=== PATIENT | male | born 1945 | race Caucasian/White ===

== ENCOUNTER 2018-08-29 21:45 | Inpatient (IN) | payer OTHER, MEDICARE ==
[~2018-08-29] VITALS: Ht 180.3 cm; Wt 116.4 kg
[~2018-08-29 21:45] MED LIST: ALBU90OI INH; AREDS PO; ASPI325 PO; ASPI81CH PO; ATOR10 MT; CITA20 PO; CYAN1000I IM; DOCU100 PO; DULO30 PO; FOLI400 PO; GENTEAL TEARS 015 ML BOTHEYES; GLIP5 MT; LIDOCAINE TOP; LOSA25 MT; LOVA20 PO; METF500 PO; METFORMIN HCL500 MG PO; MIRALAX17 GM PO; MORP30ER PO; MULTIVIT PO; NAPR500 PO; NIAC500 PO; NITR.4SL SL; OMEPRAZOLE MAGN20 MG PO; ONDA4ODT MM; OXYACE5T PO; OXYC10ER PO; OXYC5 PO; Omeprazole20 M1 PO; RANI150 PO; Ranitidine HCl300 MG PO; SENN187 PO; VIT1CAPS12 PO; VITAMIN D-32000 UNIT PO
[2018-08-29 22:05] LABS: Calcium, Ionized (POC) 1.19 mmol/L (1.10-1.46); Chloride (POC) 102 mmol/L (98-108); Creatinine (POC) 1.6 mg/dL (0.8-1.3); Glucose (ISTAT POC) 226 mg/dL (70-99); Hemoglobin (POC) 9.2 g/dL (13.5-17.5); Potassium (POC) 4.9 mmol/L (3.5-5.5); Sodium (POC) 129 mmol/L (135-148); Total CO2 (POC) 17 mmol/L (21-32)
[2018-08-29 22:05] LABS: BASOPHILS ABSOLUTE AUTO 0.02 K/mm3 (0.00-0.23); BASOPHILS PERCENT AUTO 0 % (0-2); EOSINOPHILS PERCENT AUTO 0 % (0-6); Hematocrit 28.5 % (37.0-53.0); Hemoglobin 9.2 g/dL (13.5-17.5); IMMATURE GRAN ABSOLUTE AUTO 0.11 K/mm3 (0.00-0.10); IMMATURE GRAN PERCENT AUTO 1 % (0-1); LYMPHOCYTES ABSOLUTE AUTO 0.33 K/mm3 (0.84-5.20); LYMPHOCYTES PERCENT AUTO 2 % (21-46); MONOCYTES ABSOLUTE AUTO 0.09 K/mm3 (0.16-1.47); MONOCYTES PERCENT AUTO 1 % (4-13); Mean Corpuscular HGB 28.5 pg (26.0-34.0); Mean Corpuscular HGB Conc 32.3 g/dL (31.5-36.5); Mean Corpuscular Volume 88 fL (80-100); Mean Platelet Volume 9.8 fL (9.1-12.4); NEUTROPHILS ABSOLUTE AUTO 15.27 K/mm3 (1.96-9.15); NEUTROPHILS PERCENT AUTO 97 % (41-73); Platelet Count 341 K/mm3 (150-400); RDW Coefficient Variation 14.4 % (11.7-14.2); RDW Standard Deviation 46.2 fL (35.1-46.3); Red Blood Cell Count 3.23 M/mm3 (4.30-5.90); White Blood Cell Count 15.82 K/mm3 (4.00-11.30)
[2018-08-29 22:32] LABS: Albumin, Blood 2.7 g/dL (3.4-5.0); Albumin/Globulin Ratio 0.6 (0.8-1.8); Bilirubin, Total 0.7 mg/dL (0.1-1.0); Bun/Creatinine Ratio 23.9 (12.0-20.0); Calcium, Blood 9.2 mg/dL (8.5-10.1); Creatinine, Blood 1.59 mg/dL (0.60-1.20); Globulin, Blood 4.8 g/dL (2.2-4.0); Potassium, Blood 4.9 mmol/L (3.5-5.5); Total Protein, Blood 7.5 g/dL (6.4-8.2)
[2018-08-29 22:36] LABS: Troponin I 0.935 ng/mL (0.000-0.040)
[2018-08-29 22:38] LABS: International Normalized Ratio 1.06; Prothrombin Time Results 11.2 Sec (9.7-11.5)
[2018-08-29] MEDS ORDERED: ACET500 PO (23:58)
[2018-08-29] MEDS ORDERED: AMLO5 PO (23:59)
[2018-08-29] MEDS ORDERED: ATOR20 PO (23:59)
--- NOTE | 2018-08-30 01:20 | NUR ---
ASSUMING CARE OF PT AT THIS TIME. PT REPORT RECEIVED VIA TELEPHONE WITH OFFGOING ED NURSE, ZITA PRADO. WAITING FOR PT TRANSFER FROM ED TO ICU AT THIS TIME.
--- NOTE | 2018-08-30 01:25 | NUR ---
PT TRANSFERRED FROM ED TO ICU AT THIS TIME.
--- NOTE | 2018-08-30 01:30 | NUR ---
ASSESSMENT PT CALM, QUIET, COOPERATVIE, RESPONDS TO VERBAL STIMULI, SPONT OPENS EYES, TALKS AND ANSWERS QUESTIONS APPROPRIATELY, OCC FORGETFUL, OTHERWISE A&O X4. N/T RUE. PT STATES HX OF N/T IN BUE. OTHERWISE SENSATION INTACT. PT BEAUCHAMP. PT C/O SLIGHT WEAKNESS FROM BASELINE. PT C/O "THROBBING" CP. MORPHINE ADMINSITERED IN ED FOR CP. NITRO DRIP 5 MCG/MIN FOR CP - WILL TITRATE DRIP TO EFFECT. PT STATES "CP IS TOLERABLE RIGHT NOW". LUNGS EXP WHEEZING T/O, DIMINISHED LOWER LOBES. SHALLOW BREATHING. PT ON 2L NC. OXY SAT >95%. RR 20'S. SOB AT REST. DYSPNEA WITH EXERTION. WILL CONTACT HOSPITALIST REGARDING SOB. AFEBRILE. NSR WITH BBB AND OCC PAC'S. HR 80'S. BP STABLE - SEE VS FS. STRONG PULSES. WARM, PALE SKIN. NO EDEMA NOTED. HYPOACTIVE BT X4 QUADRANTS. ABD MOD DIST, SOFT, TENDER WITH AND WITHOUT PALPATION. PT STATES ABD DIST IS NORMAL. PT C/O "CONSTIPATION FOR 4 DAYS". PT STATSE ABD TENDERNESS STARTED WITH CONSTIPATION. UROSTOMY IN PLACE: CLEAR, YELLOW URINE NOTED. PIV X2. HEPARIN DRIP AT 13 UNITS/KG/HR AT A DOSING WEIGHT 90 KG (23.4 ML/HR) - VERIFIED DRIP WITH EVE LAMB. NITRO DRIP 5 MCG/MIN - VERIFIED DRIP WITH ADONIS PRADO.
--- NOTE | 2018-08-30 02:43 | NUR ---
DR. GÓMEZ CALLED DR. GÓMEZ AT THIS TIME. UPDATED DR. GÓMEZ OF SOB AND EXP WHEEZING. DR. GÓMEZ ORDERD BD PROTOCOL. DR. GÓMEZ ALSO ORDERED CBC W/O DIFF FOR AM LABS AND CARDIO CONSULT. EVE ANAYA CALLING CONSULT AT THIS TIME.
--- NOTE | 2018-08-30 03:14 | NUR ---
HEPARIN DRIP NO APTT ORDERED FOR AM LABS. FRANCIS, PHARMACIST PLANNING TO ORDER APTT FOR AM LABS.
[2018-08-30 04:16] LABS: Hematocrit 26.4 % (37.0-53.0); Hemoglobin 8.4 g/dL (13.5-17.5); Mean Corpuscular HGB 28.2 pg (26.0-34.0); Mean Corpuscular HGB Conc 31.8 g/dL (31.5-36.5); Mean Corpuscular Volume 89 fL (80-100); Mean Platelet Volume 9.9 fL (9.1-12.4); Platelet Count 310 K/mm3 (150-400); RDW Coefficient Variation 14.3 % (11.7-14.2); RDW Standard Deviation 46.3 fL (35.1-46.3); Red Blood Cell Count 2.98 M/mm3 (4.30-5.90); White Blood Cell Count 13.75 K/mm3 (4.00-11.30)
--- NOTE | 2018-08-30 04:30 | NUR ---
HEPARIN DRIP INFORMED FRANCIS, PHARMACIST OF AM APTT LAB VALUE. FRANCIS IS PLANNING TO ADJUST HEPARIN DRIP. WAITING FOR ORDER AT THIS TIME.
[2018-08-30 04:36] LABS: Bun/Creatinine Ratio 25.9 (12.0-20.0); Creatinine, Blood 1.58 mg/dL (0.60-1.20); Potassium, Blood 4.7 mmol/L (3.5-5.5)
--- NOTE | 2018-08-30 04:50 | NUR ---
DR. GÓMEZ PT STATES EPIGASTRIC PAIN CONTINUES AFTER ADMINISTERING ROXICODONE PRN. PT DENIES CP AT THIS TIME. NITRO DRIP - CONT TO TITRATE TO EFFECT. DR. GÓMEZ ORDERED MS CONTIN 30 MG BID. PT STATES, "WHEN I TAKE MS CONTIN AT HOME, MY PAIN GOES AWAY". DOCUSATE ADMINSITERED FOR CONSTIPATION. PT REPORTS NO BM FOR [address] GÓMEZ INSTRUCTED TO ADMINISTER MIRALAX AM DOSAGE EARLY. WAITING FOR MIRALAX FROM PHARMACY AT THIS TIME.
--- NOTE | 2018-08-30 06:36 | NUR ---
SHIFT ASSESSMENT NO ACUTE CHANGES NOTED T/O SHIFT. PT SLEPT T/O SHIFT. PT CALM, QUIET, COOPERATIVE, RESPONDS TO VERBAL STIMULI, SPONT OPENS EYES, TALKS AND ANSWERS QUESTIONS APPROPRIATELY, OCC FORGETFUL, OTHERWISE A&O X4. N/T RUE. PT STATES HX OF N/T IN BUE. OTHERWISE SENSATION INTACT. PT BEAUCHAMP. PT C/O SLIGHT WEAKNESS FROM BASELINE. PT HAS DIFFICULTY WITH R HAND FINE ELECTRICAL PROSPECTING OPERATOR. PT STATES R HAND FINE ELECTRICAL PROSPECTING OPERATOR IS NORMAL, BUT C/O SLIGHT WEAKNESS. PT STATES "THROBBING" CP HAS RESOLVED THIS AM. PT ON NITRO DRIP 10 MCG/MIN - CONT TO TITRATE TO EFFECT. PT C/O EPIGASTRIC PAIN THIS AM. PT STATES PAIN IS TOLERABLE THIS AM AFTER ADMINISTERING MS CONTIN. LUNGS COARSE, DIMINIHSED LOWER LOBES. OCC EXPIRATORY WHEEZING NOTED, ESPECIALLY WITH EXERTION. BREATHING TX PER RT. LESS EXPIRATORY WHEEZING NOTED POST BREATHING TX. SHALLOW RBEATHING. PT ON 2L NC. OXY SAT REMAINED >90%. RR 16 TO 20'S. CPAP WHILE SLEEPING WITH PRESSURES 5-10, NO OXYGEN. DYSPNEA WITH EXERTION. AFEBRILE. NSR WITH BBB AND OCC PAC'S. HR 80'S TO 90'S. BP STABLE - SEE VS FS. STRONG PULSES. WARM, PALE SKIN. NO EDEMA NOTED. HYPOACTIVE BT X4 QUADRANTS. ABD MOD DIST, SOFT, TENDER WITH AND WITHOUT PALPATION. PT STATES ABD DIST IS NORMAL. PT C/O "CONSTIPATION FOR 4 DAYS". PRN DOCUSATE ADMINISTERING. PER DR. GÓMEZ - SCHEDULED MIRALAX ADMINSITERED EARLY THIS AM. PT STATES ABD TENDERNESS STARTED WITH CONSTIPATION. UROSTOMY IN PLACE: CLEAR, YELLOW URINE NOTED. PIV X2. HEPARIN DRIP AT 15 UNITS/KG/HR AT A DOSING WEIGHT 90 KG (27 ML/HR). WILL CONT TO MONITOR PT AND WILL PROVIDE BEDSIDE REPORT TO ONCOMING NURSE THIS AM.
--- NOTE | 2018-08-30 10:35 | NUR ---
RECEIVED REPORT AND ASSUMED CARE OF PATIENT. HE IS PLEASANT AND SITTING UP IN BED. PT ABLE TO REPOSITION INDEPENDENTLY IN THE BED. PT IS ON 2 LPM VIA NC O2 SAT >90%. PT A&O, POOR HISTORIAN, HOWEVER, HE IS AWARE OF SITUATION, DATE/TIME, FAMILY AND PLACE. PT COMPLAINS OF PAIN IN ABDOMEN AND SOMEWHAT IN CHEST 5/10 ON PAIN SCALE. WILL CONTINUE TO MONITOR.
--- NOTE | 2018-08-30 11:40 | NUR ---
HEART CENTER RN'S AT BEDSIDE TO PREPARE PATIENT FOR PROCEDURE.
--- NOTE | 2018-08-30 12:03 | NUR ---
ECHOCARDIOGRAM COMPLETED
--- NOTE | 2018-08-30 14:45 | NUR ---
CRYSTAL CALIBRATOR PROCEDURE: PT TAKEN TO CRYSTAL CALIBRATOR BY HEART CENTER STAFF FOR PROCEDURE WITH DR. CALIXTO. PT TOLERATED THE PROCEDURE WELL AND RETURNS TO ROOM ASLEEP. RT. FEMORAL ACCESS SITE IS SOFT AND NON-TENDER, NO HEMATOMA NOTED AT THIS TIME. NO GRIMACE OR WITHDRAWAL FROM ASSESSMENT. WILL CONTINUE TO MONITOR.
--- NOTE | 2018-08-30 15:19 | NUR ---
COMP OF RIGHT LOWER ABD PAIN. MED WITH ROXICODONE WITH GOOD RELIEF.
--- NOTE | 2018-08-30 18:46 | NUR ---
PT CONTINUES TO BE CONFUSED. HE IS SITTING UP IN BED AND FAMILY HAS BEEN AT BEDSIDE OFF AND ON THROUGHOUT THE DAY. PT USING 2 LPM O2 VIA NC, SPO2 >90%. UROSTOMY BAG EXTENSION IN PLACE TO DRAIN TO URINE CATH BAG. PT ANSWERS QUESTIONS APPROPRIATELY, HOWEVER, HE SEEMS FORGETFUL AT THIS TIME. GAVE MEDICATION IN APPLESAUCE, PT SWALLOWED AND TOLERATED WELL. WILL CONTINUE TO MONITOR AND GIVE REPORT TO NOC RN.
--- NOTE | 2018-08-30 19:15 | NUR ---
ASSUMING CARE OF PT AT THIS TIME. PT REPORT RECEIVED AT BEDSIDE WITH OFFGOING NURSES, KIERA RN AND JACK RN. PT LAYING IN BED, SLEEPING UPON ENTERING THE ROOM. VS STABLE - SEE VS FS. PT DOES NOT APPEAR TO BE IN DISTRESS AT THIS TIME. WILL REVIEW PLAN OF CARE.
--- NOTE | 2018-08-30 19:30 | NUR ---
ASSESSMENT PT CALM, QUIET, COOPERATIVE, RESPONDS TO VERBAL STIMULI, SPONT OPENS EYES, FORGETFUL, INCREASED CONFUSION POST STITCH RUBBER, A&O X4, SLOW TO RESPOND TO QUESTIONS, LETHARGIC, FALLS BACK ASLEEP WITH DECREASED STIMULI. N/T RUE. PT STATES HX OF N/T IN BUE. OTHERWISE SENSATION INTACT. PT BEAUCHAMP. PT C/O SLIGHT WEAKNESS FORM BASELINE. PT HAS DIFFICULTY WITH R HAND FINE FLOOR RENOVATOR. PT STATES R HAND FINE FLOOR RENOVATOR IS NORMAL, BUT C/O SLIGHT WEAKNESS. PT STATES PAIN IS TOLERABLE AT THSIS TIME. HELD SCHEDULED MS CONTIN. LUNGS CLEAR, LOWER LOBES DIMINISHED AND RUB IN LOWER LOBES. OCC EXPIRATORY WHEEZ NOTED, ESPEICALLY WITH EXERTION. BREATHING TX PER RT. SHALLOW BREATHING. PT ON 2L NC WHILE AWAKE. CPAP 5-10, NO OXYGEN WHILE SLEEPING. OXY SAT >90% WHILE ON 2L NC. RR 16. DYSPNEA WITH EXERTION. AFEBRILE. NSR WITH BBB AND PAC'S. HR 80'S. BP STBALE - SEE VS FS. STRONG PULSES. WARM, PALE SKIN. NO EDEMA. DENIES CP. R GROIN SITE: NO HEMATOMA, NO BRUISING, NO BLEEDING, NO REDNESS, SLIGHT TENDERNESS WITH PALPATION, DRESSING C/D/I. HYPOACTIVE BT X4 QUADRANTS. ABD MOD DIST, SOFT, TENDER WITH ADN WITHOUT PALPATION. PT STATES ABD DIST IS NORMAL. PT C/O CONSTIPATION. PRN DOCUSATE ADMINISTERED. ADVANCE DIET TOLERATED. UROSTOMY IN PLACE: CLEAR, YELLOW URINE NOTED. PIV X2 - SL. WILL CONT TO MONITOR PT AND WILL PROVIDE BEDSIDE REPORT TO ONCOMING NURSE THIS AM.
--- NOTE | 2018-08-31 02:31 | NUR ---
DR. RICO GÓMEZ ORDERED CBC W/O DIFF. DR. GÓMEZ DOES NOT WANT AM CHEMISTRY LABS.
[2018-08-31 03:21] LABS: Hematocrit 26.9 % (37.0-53.0); Hemoglobin 8.2 g/dL (13.5-17.5); Mean Corpuscular HGB 27.8 pg (26.0-34.0); Mean Corpuscular HGB Conc 30.5 g/dL (31.5-36.5); Mean Corpuscular Volume 91 fL (80-100); Mean Platelet Volume 10.7 fL (9.1-12.4); Platelet Count 235 K/mm3 (150-400); RDW Coefficient Variation 14.9 % (11.7-14.2); RDW Standard Deviation 49.8 fL (35.1-46.3); Red Blood Cell Count 2.95 M/mm3 (4.30-5.90); White Blood Cell Count 8.96 K/mm3 (4.00-11.30)
--- NOTE | 2018-08-31 07:30 | NUR ---
ASSUMED CARE OF PATIENT; SEE ASSESSMENT CHARTING FOR DETAILS. PATIENT AWAKE; SHORT-TERM MEMORY LIMITED; LIKES TO JOKE AND IS VERY PLEASANT. APPEARS TO HAVE SOME HALLUCINATIONS; TALKING TO HIS SON "MICHELA" WHO IS NOT PRESENT; THINKS MCIHELA IS AGE 8 (GROWN MAN NOW). AM CARE GIVEN AND CBG CHECKED; NO COVERAGE INDICATED. MEAL SETUP DONE BY RN AND ASSESSED PATIENTS' SWALLOW, ETC. BEFORE ALLOWING HIM TO FEED SELF; NO DIFFICULTY NOTED. PATIENT HAD BEEN NPO T/O NIGHT WITHOUT IVF'S AND VERY THIRSTY; ADA DIET ORDERED BY DR. ABEL WHO IS PRESENT AT THIS TIME. R UROSTOMY IN PLACE AND DRAINING SMALL AMOUNT OF SAAD URINE; DRAINING FROM UROSTOMY BAG AND INTO F/C DRAINAGE BAG. ABD. OBESE WITH ACTIVE BOWEL TONES. CHEST WITH COARSE ANTERIOR SOUNDS; ENCOURAGED TO TAKE DEEP BREATHS; C/O SORENESS TO FRONTAL CHEST WITH COUGHING BUT LUNGS CLEARED. OXYGEN AT 2L/MIN VIA NC/ BIOX.97%. PATIENT THINKING IT IS 1991 AND WHEN RN INFORMED HIM IT WASN'T HE SAID "THEN 1995". MONITOR NSR AND VSS; AFEBRILE. R GROIN SITE D/I; NO S/SX'S OF HEMATOMA.
--- NOTE | 2018-08-31 07:58 | NUR ---
SHIFT ASSESSMENT PT SLEPT T/O SHIFT. PT CALM, QUIET, COOPERATIVE, RESPONDS TO VERBAL STIMULI, SPONT OPENS EYES, FORGETFUL, INCREASED CONFUSION NOTED T/O SHIFT, SLOW TO RESPOND TO QUESTIONS, LETHARGIC, FALLS BACK ASLEEP WITH DECREASED STIMULI, AUDITORY AND VISUAL HALLUNICATIONS NOTED THIS AM. PT'S STATED, "ESTEPHANIA ACTED LIKE THIS AFTER HIS PREVIOUS SURGERY FOR HIS AK. MAYBE HE IS REACTING TO THE MEDICATIONS". N/T RUE. PT STATES HX OF N/T IN RUE. OTHERWISE SENSATION INTACT. PT BEAUCHAMP. PT C/O SLIHT WEAKNESS FROM BASELINE. PT HAS DIFFICULTY WITH R HAND FINE DRIP. PT STATES R HAND FINE SALES TECHNICIAN IS NORMAL, BUT C/O SLIGHT WEAKNESS. PT STATED PAIN WAS TOLERABLE T/O SHIFT. LUNGS CLEAR, LOWER LOBES DIMINISHED AND RUB. OCC EXPIRATORY WHEEZING NOTED, ESPECIALLY WITH EXERTION. BREATHING TX PER RT. SHALLOW BREAHTING. PT ON RA TO 2L NC WHILE AWAKE. CPAP 7-10 WITH 2L OXYGEN. CONT TO TITRATE OXYGEN TO MAINTAIN SPO2. RR 16 TO 30'S. DYSPNEA WITH EXERTION. AFEBRILE. NSR WITH BBB AND PAC'S. HR 60'S TO 80'S. BP STABLE - SEE VS FS. STRONG PULSES. WARM, PALE SKIN. NO EDEMA. DENIED CP. R GROINT SITE: NO HEMATOMA, NO BRUISING, NO BLEEDING, NO REDNESS, SLIGTH TENDERNESS WITH PALPATION, DRESSING C/D/I. HYPOACTIVE BT X4 QUADRANTS. ABD MOD DIST, SOFT, TENDFER WITH AND WITHOUT PALPATION. PT STATES ABD DIST IS NORMAL. PT C/O CONSTIPATION. PRN DOCUSATE ADMINSITERED DURING SHIFT. PT TOLERATED PO APPLESAUCE WITH MEDICATIONS, BUT REFUSED ADDITIONAL FOOD AND WATER T/O SHIFT. UROSTOMY IN PLACE: CLEAR, YELLOW URINE NOTED. PIV X1 - SL. DR. ABEL IN TO SEE PT THIS AM. UPDATED DR. ABEL REGARDING PT'S STATUS. DR. ABEL PLANNING TO CHANGE TO PCU STATUS AND REMOVE PT'S MEDICATOINS. ONCOMING SHIFT PROVIDED TO EVE VALDES THIS AM.
--- NOTE | 2018-08-31 08:30 | NUR ---
DR. CALIXTO HERE; ORDERED STAT BMP.
--- NOTE | 2018-08-31 09:15 | NUR ---
TC TO DR. NUNES WITH LABS AND INFORMED RENAL FUNCTION WORSE. INFORMED HIM PATIENT NPO T/O NIGHT WITHOUT IVF'S; REQUEST IV INFUSION AND WONDERED IF MUCOMYST COULD BE ADDED D/T DYE FROM ANGIOGRAM YESTERDAY. PHYSICIAN STARTE TO REQUEST IVF AND THEN CALLED FOR RENAL CONSULT.
--- NOTE | 2018-08-31 09:20 | NUR ---
T/C TO HOSPITALIST, DR. ABEL RE: CARDIOLOGY WANTING RENAL CONSULT. ORDER GIVEN FOR NS TO INFUSE AT 100ML/HR X 2 LITERS AND TO GIVE MUCOMYST 600MG PO BID X 2 DAYS (TOTAL OF 4 DOSES). TO HOLD OFF ON RENAL CONSULT.
--- NOTE | 2018-08-31 09:30 | NUR ---
PHYSICAL THERAPY HERE; SEE NOTES. CONCERNED THAT PATIENT HAS 'L SIDE NEGLECT AND IMPAIRED SENSATION TO L SIDE WELL SOME SPEECH ISSUES'. RN T/C TO DR. ABEL RE: CONCERNS; ORDER FOR S.T. AND O.TJack MCCOLLUM.S
[2018-08-31 10:03] LABS: Bun/Creatinine Ratio 22.7 (12.0-20.0); Calcium, Blood 8.9 mg/dL (8.5-10.1); Creatinine, Blood 2.2 mg/dL (0.60-1.20)
--- NOTE | 2018-08-31 11:30 | NUR ---
SPEECH TX. HERE TO EVAL. PATIENT; STATES PATIENT IS SUFFERING FROM A CVA. T/C TO DR. ABEL; ORDER FOR STAT CT OF HEAD (WITHOUT CONTRAST).
--- NOTE | 2018-08-31 12:15 | NUR ---
TO CT SCAN VIA BED WITH MONITOR AND RN AND TELEPHONE TRIAGE NURSE. RETURNED AFTER 15/MIN WITHOUT INCIDENT.
--- NOTE | 2018-08-31 13:30 | NUR ---
DR. ABEL RETURNED AND STATES CT SHOWS LARGE CVA; REQUESTS NEURO CONSULT. RN T/C TO DR. CENTENO OFFICE AND INFORMED RE: CONSULT WITH ICU 8; THEY WILL PASS CONSULT INFORM. ONTO PHYSICIAN.
--- NOTE | 2018-08-31 15:15 | NUR ---
DR. CENTENO HERE TO EVAL. PATIENT; SPOKE WITH FAMILY AND SHOWED THEM THE CT SCAN; SEE CONSULT NOTES.
--- NOTE | 2018-08-31 18:00 | NUR ---
SUMMARY: SLEEPING ON/OFF THROUGHOUT THE DAY; CPAP WORN THIS AFTERNOON; NO OXYGEN REQUIRED; BIOX STAYING 94% OR >. FAMILY VERY LOVING AND ATTENTIVE; ASSISTED PATIENT WITH MEALS; NO NOTED SWALLOWING ISSUES AND NO S/SXS OF ASPIRATION; APPETITE VERY LIMITED AND PATIENT HAS HARD TIME STAYING FOCUSED ON ACTIVITIES. SPEECH APPEARS CLEARER THIS EVENING. ONLY 375 U.O THIS PAST 12 HOURS. PATIENT DRINKING FLUIDS WELL AND IVF OF NS INFUSING AT 100ML/HR. WILL REPORT TO ONCOMING RN.
--- NOTE | 2018-08-31 19:20 | NUR ---
ASSUMED CARE PT RESTING WITH CPAP ON WITH 2L BLEED-IN. PT OPENS EYES TO VOICE, FOLLOWS COMMANDS, ALERT TO YEAR, FAMILY AND SELF BUT [facility] [place]. LEFT TIRE AND LUBE TECHNICIAN WEAKER COMPARED TO RIGHT AND PT HAS TWITCHING TYPE MOVEMENT WHEN ATTEMPTING TO GET HAND TO FACE. PT TOLERATING WATER AND ABLE TO CLEAR SECRETIONS WITH COUGH. NS AT 100ML/HR WITH ADDITIONAL LITER PLANNED. BP STABLE, EKG SHOWS SR W/ BBB, O2 SATS 91%. RLQ UROSTOMY IN PLACE DRAINING TO BAG.
--- NOTE | 2018-09-01 07:20 | NUR ---
START OF SHIFT NOTE: PATIENT IS AWAKE, ON HOME CPAP, PLACED ON 2 L NC, PATIENT FOLLOWS COMMANDS, ORIENTED TO SELF/FAMILY/YEAR, PATIENT THIN[facility], ABLE TO OPEN EYES, WIGGLE TOES ON RIGH LOWER EXTREMITY, AND SQUEEZE WITH RIGHT HAND, NEGLECT ON LEFT UPPER AND LOWER EXTREMITIES, PATIENT ABLE TO MOVE LEFT LEG BUT HAS NO SPATIAL PERCEPTION, ALSO ABLE TO RAISE LEFT ARM BUT NOT ABLE TO SQUEEZE HAND, PATIENT HAS NO PROBLEM SWALLOWING AND TOOK HIS AM COREG WITH APPLESAUCE WITHOUT ANY PROBLEMS, DR. ABEL IN TO SEE PATIENT, PATIENT HAS UROSTOMY ON RIGHT SIDE HOOKED UP TO JACKSON BAG, CALL LIGHT IN REACH, WILL CONTINUE TO MONITOR.
[2018-09-01 08:48] LABS: Bun/Creatinine Ratio 21.5 (12.0-20.0); Calcium, Blood 8.1 mg/dL (8.5-10.1); Creatinine, Blood 2.46 mg/dL (0.60-1.20); Potassium, Blood 4.8 mmol/L (3.5-5.5)
--- NOTE | 2018-09-01 10:45 | NUR ---
PATIENT TAKEN OFF BEDPAN AND PARTIAL BED BATH DONE WITH DAGOBERTO SCHUMACHER, DAUGHTER AND AT BEDSIDE, UPDATE PROVIDED, PATIENT WAS ABLE TO FOLLOW COMMANDS AND HELP WITH ROLLING FROM SIDE TO SIDE.
--- NOTE | 2018-09-01 11:39 | NUR ---
CALLED DR. ABEL AND RELAYED THAT OF PATIENT WOULD LIKE TO SPEAK WITH HIM ABOUT NEUROLOGY SEEING THE PATIENT, AND IF THE PATIENT IS ABLE TO GO HOME AFTER THE HOSPITAL STAY, DR. ABEL WILL TRY TO COME TO ROOM LATER TODAY AND SPEAK WITH FAMILY.
--- NOTE | 2018-09-01 11:40 | NUR ---
PT IN TO SEE PATIENT AND WORK WITH HIM.
--- NOTE | 2018-09-01 11:44 | NUR ---
PATIENT PLACED ON BEDPAN, CALL LIGHT IN REACH, FAMILY AT BEDSIDE, WILL CONTINUE TO MONITOR.
--- NOTE | 2018-09-01 13:37 | NUR ---
OT IN TO SEE PATIENT.
--- NOTE | 2018-09-01 15:28 | NUR ---
REPORT WAS CALLED TO EVE HEWITT, PATIENT WILL BE MOVED TO ROOM 311, MEDICAL STATUS WITH TELEMETRY, PATIENT TO BE MOVED WITH BED, ALL BELONGINGS WITH PATIENT.
--- NOTE | 2018-09-01 16:20 | NUR ---
PATIENT WAS MOVED TO MEDICAL FLOOR ROOM 311 AT 1615 VIA BED AND WITH ALL BELONGINGS.
--- NOTE | 2018-09-01 16:32 | NUR ---
PATIENT TRANSFERRED TO ROOM 311, REPORT RECEIVED FROM EVE ROOT FROM ICU. PATIENT IS ORIENTED TO SELF AND FAMILY. CONTINUES TO HAVE HALLUCINATIONS. L SIDED WEAKNESS HAS NEARLY RESOLVED. LUNGS DIMINISHED THROUGHOUT, ON 3LO2 TO MAINTAIN SATS WITH CPAP AT NOC. PATIENT REPORTING PAIN IN LOWER ABDOMEN, WILL MEDICATE PER EMAR. UROSTOMY TO RLQ INTACT AND DRAINING TO JACKSON BAG. FAMILY AT BEDSIDE. ORIENTED TO ROOM AND USE OF CALL LIGHT. FALL PRECAUTIONS IN PLACE PER UNIT PROTOCOL.
--- NOTE | 2018-09-01 22:59 | NUR ---
DURING MY INITIAL ASSESSMENT AT START OF SHIFT PT IS SLEEPING VERY HEAVILY. VERY DIFFICULT TO WAKE UP BUT DID RESPOND EVENTUALLY. THIS RN DID NOT FEEL PT WOULD BE ABLE TO SAFELY SWALLOW HIS MEDICATIONS DUE TO SLEEPINESS. PT'S REPORTED THAT PT HAD A "ROUGH AND TIRING DAY TODAY AND HASN'T GOTTEN MUCH SLEEP THE LAST NIGHT OR TWO". PT REQUESTED TO HOLD NIGHT MEDS FOR NOW AND LET PT GET SOME REST. PT IS SLEEPING COMFORTABLY IN NO APPARENT DISTRESS. CPAP IS ON AND O2 SATS IN MID 90'S. WILL CONTINUE TO MONITOR.
[2018-09-02 05:06] LABS: Mean Platelet Volume 10.3 fL (9.1-12.4); Platelet Count 226 K/mm3 (150-400)
--- NOTE | 2018-09-02 05:13 | NUR ---
RECORDS TECH SUMMARY PT WAS VERY SLEEPY AT START OF SHIFT. PT STATED PT HAD A BUSY AND ROUGH DAY AND WAS PRETTY TIRED. HELD PT'S PO MEDS AT THAT TIME. PT WOKE UP LATER ON AND WAS ABLE TO TAKE HIS 2100 MEDS JUST FINE WITH APPLESAUCE. PT PLEASANT AND ANSWERS MOST QUESTIONS APPROPRIATELY BUT IS STILL QUITE CONFUSED WITH SOME HALLUCINATIONS. FORGETS HE'S AT THE HOSPITAL AND THOUGHT THIS RN WAS HIS SON JUAN ANTONIO. PT HAS BEEN ON HIS CPAP MOST OF THE NIGHT SATTING IN THE MID 90'S. DUE TO CONFUSION PT DOES TAKE OFF THE CPAP AT TIMES AND DESATS FAIRLY QUICKLY INTO THE MID TO HIGH 80'S. PT ANXIOUS AT TIMES AND WAS WANTING TO GET OUT OF BED. PT REPORTED BACK AND ABD PAIN AT THIS TIME AND WAS ABLE TO RELAX WITH PAIN MEDICATIONS. DRY ROOM OPERATOR REPORTS PT IS SINUS ABDIRAHMAN IN THE 50'S WHILE SLEEPING AND BUMPS UP TO 60-70'S WHILE AWAKE WITH A BBB AND OCCASIONAL PVC'S. O2 SATS MID 90'S ON CPAP AND OTHER VITAL SIGNS STABLE. WILL CONTINUE TO MONITOR.
[2018-09-02 05:27] LABS: Bun/Creatinine Ratio 21.9 (12.0-20.0); Calcium, Blood 8.4 mg/dL (8.5-10.1); Creatinine, Blood 2.7 mg/dL (0.60-1.20); Potassium, Blood 5.2 mmol/L (3.5-5.5)
--- NOTE | 2018-09-02 15:22 | NUR ---
Met with Mr. Scott's and youngest son at bedside. They told me story after story of pt's strength and survival throughout his life. 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 He has survived severl bout of cancer, and has always declined chemo until this most recent cancer dx. According to his , "The cancer has always gone away before." Family unsure if chemo is palliative or curative. They admit he is critically ill, but son states "He's been this bad before." Son left and , Hanh, became much more open once we were alone. We spoke a little about his code status and his wishes. Hanh states they never talked about these things, but she beleives he would not want to live with a dimished lifestyle. She states that if it were up to him, he would probably be a DNR. But he would worry about leaving his family and would "want everything done." Hanh is very soft-spoken and clearly emotionally overwhelmed with fear and worry. It is clear to me that the pt is in charge of this family. Hanh began to ask me about prognosis and what I thought about his chances of survival with and without chemo. At this point, I introduced our Palliative Care nurses to the conversation. I gently explained their extensive knowledge regarding pain/sysmptom management and their ability to clarify sometimes confusing medical terminology. She appeared relieved to have this support available. T/C to palliative care team. Hanh responded well to being heard and affirmed. She held my hand and allowed me to hold her while she cried. She was deeply appreciative of prayer and emotional support. This family will certainly benefit from a gentle, careful explaination of Brad's multiple comorbidities in understandable terms. Brad slept soundly through this conversation. I will remain available.
--- NOTE | 2018-09-02 15:57 | NUR ---
Spiritual care visit conducted. Patient and family are known to this aligner typewriter. Patient was asleep and family asked to talk to me. Patient's Carrie and daughter Trista shared with me the patient's recent medical history and told me about their confusion about next steps in regard to the care of the patient. I listened empathically, affirmed the idea about having the Paliative Care Nurse talk with their Oncologist to help them understand what treatment should look like going forward and reminded them that they don't need to make any decision immediately (they have time to gather all the necessary information). I also ministered to the emotional/spiritual issues because the family is exhausted emotionally and spiritually drained. I encouraged self care, provided pastoral travel counselor automobile club, quoted inspirational verses from the Bible and provided prayer. The family responded well to all interventions and showed signs of restored shania. They expressed gratitude for my care and time.
--- NOTE | 2018-09-02 16:00 | NUR ---
Pt gave permission to [facility] to provide care 09/03/18.
--- NOTE | 2018-09-02 19:14 | NUR ---
Initial Visit: Consult received for advanced care planning. Pt admitted for NSTEMI: history of CAD, HTN, diabetes, obstructive sleep apnea, metastatic urethral cancer. Pt is reclining in bed. He is alert, oriented to self and family. He does not answer any other orientation questions at this time, it is not apparent if he does not know the answers or just chosing not to answer. Pt reports that he is having lower back pain, is unable to tell me how severe it is and assign a number between 0-10. He does request medication. Family is bedside - there is a daughter, Tatiana, and , Hanh. Both are concerned about the patient's prognosis. They are unsure if he will continue to tolerate treatment: This was his first chemo therapy 2 days ago and he reports profound fatigue afterward with NSTEMI treatment now. He has also suffered an ischemic stroke with left sided neglect. Family is asking questions about the pt's future treatments. They report that Dr. Goncalves has not been clear on if the patient's treatment is palliative or curative. They have repeated "months" [that the patient has left to live] and are unsure if this is with the chemo treatments or without them. They ask this Palliative nurse to call Sacha and ask more direct questions, as they would like more information so that they can plan. Tatiana states that the speech therapist has warned them sternly against giving him anything to eat or drink. I cannot find documentation supporting a change in diet today. He is ADA diet without texture or consistency changes. This was reviewed with the nurse who called Dr. Cisneros. Pt is now changed to puree foods with honey consistency fluids. Dr. Cisneros also added IV fluids. Plan to follow up with Dr. Goncalves tomorrow. I did talk to his office and the nurse was able to tell me that he has bladder cancer with metastatic disease to liver and lungs. Will return call and hope to get more detailed prognosis. If unable, will advocate for Dr. Goncalves to consult on the patient while in the hospital. The family seems to be in need of a more direct conversation of prognosis. Family states that they value frankness. Will follow up tomorrow with call to Sacha, then follow up with patient and family.
--- NOTE | 2018-09-02 20:16 | NUR ---
SUMMARY- PT ALERT TO SELF AND FAMILY, FOLLOWS COMMANDS WITH A LOT OF CUES, SEEMS TO HAVE A PROCESSING DELAY/DISORDER. SWALLOWS PILLS WITH APPLESAUCE, COUGHED WITH THIN LIQ ON TWO OCCASIONS, COUGHING. PT MADE PUREE/THICK UNTIL FURTHER SWALLOW EVAL- CALLED DR ABEL 183 TO INFORM HIM PTS COUGHING AND AGREED TO DIET RESTRICTIONS UNTIL SWALLOW EVAL REEVAL. NOTIFIED HIM OF BRADYCARDIA AND DOESN'T WANT RN TO HOLD COREG UNLESS <45. GAVE COREG WITH HR 54. CONT PULSE OX, PT DESATS WITH ACTIVITY OR PO INTAKE. HAS MIN RESERVE. FIRST THING IN AM 0715, RN ASSESSED PT TO BE TACHYPNIC AND DYSPNIC, SAT 94$, DIMINISHED T.O. CALLED RN FOR NEB TX WHICH WAS HELPFUL.. MEDICATED PT FOR PAIN. PLACED ON CPAP FROM APPROX [id number] WHICH HELPED REGAIN RESP FUNCTION. BUT STILL HAS MIN RESERVE AND TIRES WITH MIN EXERTION. IV DISLODGED 1800- UNABLE TO START NEW IV. ORDER FOR NS AT 50 WITH LITTLE TO NO ORAL INTAKE. GAVE SESEKOT, MIRILAX IN THE AM AND FLEETS ENEMA 1800, PT HAD LG AMOUNTS OF GAS AND BM SMEAR, BT REMAIN ACTIVE. DR ABEL ORDERED ADDITIONAL ENULOSE TO BE GIVEN HS. NIGHTS CALLING TO HAVE IV PLACED. AT BEDSIDE MOST OF THE DAY, INSISTING SHE WANTS PT TO BE FULL CODE THAT HE ALWAYS PULLS OUT OF IT. FAMILY HAD ALOT OF SUPPORT FROM PALLIATIVE/PASTORAL CARE TODAY. MOST OF PT/OT HELD OFF BECAUSE PT HAD NO RESERVE. PAIN IN ABD CONTROLLED WITH MS CONTIN AND OXYCODONE 10MG TWICE TODAY. REPORT TO ELLY CHATMAN RN.
--- NOTE | 2018-09-03 04:31 | NUR ---
SHIFT SUMMARY THE PATIENT PRESENTED THIS SHIFT WITH VITALS WNL, A&O TO SELF,AND FAMILY, AND WITH LUNGS SOUNDS THAT WERE COARSE, BUT DIM AT THE BASES. THE PATIENT WAS ON 5 LITERS OF O2 AND HAD STATS OF HIGH 80'S TO LOW 90'S. AFTER THE PATIENT WAS PLACED ON BI-PAP HIS O2 STATS HAVE BEEN IN THE MID TO HIGH 90'S. THE PATIENT HAS SLEPT OFF AND ON DURNING THE SHIFT,AND IS PLEASANT, BUT CONFUSED TO VISIT WITH. THE PATIENT IS RESTING AT THIS TIME, WILL CONTINUE TO MONITOR.
[2018-09-03 05:17] LABS: BASOPHILS ABSOLUTE AUTO 0.01 K/mm3 (0.00-0.23); BASOPHILS PERCENT AUTO 0 % (0-2); EOSINOPHILS ABSOLUTE AUTO 0.05 K/mm3 (0.00-0.68); EOSINOPHILS PERCENT AUTO 1 % (0-6); Hematocrit 22.4 % (37.0-53.0); Hemoglobin 6.7 g/dL (13.5-17.5); IMMATURE GRAN ABSOLUTE AUTO 0.07 K/mm3 (0.00-0.10); IMMATURE GRAN PERCENT AUTO 1 % (0-1); LYMPHOCYTES ABSOLUTE AUTO 0.55 K/mm3 (0.84-5.20); LYMPHOCYTES PERCENT AUTO 8 % (21-46); MONOCYTES ABSOLUTE AUTO 0.34 K/mm3 (0.16-1.47); MONOCYTES PERCENT AUTO 5 % (4-13); Mean Corpuscular HGB 27.2 pg (26.0-34.0); Mean Corpuscular HGB Conc 29.9 g/dL (31.5-36.5); Mean Corpuscular Volume 91 fL (80-100); Mean Platelet Volume 10.5 fL (9.1-12.4); NEUTROPHILS ABSOLUTE AUTO 5.65 K/mm3 (1.96-9.15); NEUTROPHILS PERCENT AUTO 85 % (41-73); NRBC ABSOLUTE 0.03 K/mm3 (0.00-0.02); NRBC Auto 0.4 /100 WBC (0.0-0.2); Platelet Count 214 K/mm3 (150-400); RDW Coefficient Variation 15.1 % (11.7-14.2); Red Blood Cell Count 2.46 M/mm3 (4.30-5.90); White Blood Cell Count 6.67 K/mm3 (4.00-11.30)
[2018-09-03 05:49] LABS: Magnesium, Blood 2.9 mg/dL (1.6-2.4)
[2018-09-03 06:11] LABS: Calcium, Blood 8.6 mg/dL (8.5-10.1); Creatinine, Blood 2.79 mg/dL (0.60-1.20); Potassium, Blood 4.5 mmol/L (3.5-5.5)
[2018-09-03 12:49] LABS: IMMATURE RETIC FRACTION 11.4 % (2.3-16.0); RETIC HGB EQUIVALENT 32.7 pg (28.20-36.60); RETICULOCYTE COUNT PERCENT 0.35 % (0.50-2.50)
[2018-09-03 12:59] LABS: Percent Saturation 11.4 % (20.0-50.0)
[2018-09-03 15:53] LABS: Uric Acid, Blood 8.8 mg/dL (3.5-7.2)
--- NOTE | 2018-09-03 16:40 | NUR ---
Patient was sitting up in bed and alert when I entered patient's room. Patient and daughter Trista welcomed me. Patient struggling to communicate but has a gracious disposition. Patient in markedly improved from my visit the prior day. I facilitated some story telling with the patient, reinforced patient's humor and drive. I provided pastoral classification counselor, companionship and prayer. Patient responded well to all interventions and even prayed for me at the end of my prayer and recalled my full name (which I did not give). Patient showed signs of restored shania and expressed gratitude for the visit.
--- NOTE | 2018-09-04 04:39 | NUR ---
SHIFT SUMMARY THE PATIENT PRESENTED THIS SHIFT A&O TO SELF, VITALS WNL AND WITH INSPIRATIONAL WHEEZES HIGH IN LUNG SOUNDS, BUT OTHERWISE CLEAR BUT DIM AT BASES. THE PATIENT WAS RECEIVING A TRANSFUSION AT THE START OF THE SHIFT, WHICH WAS COMPLETED FOR TWO UNITS. THE PATIENT'S C-PAP WAS PUT INTO USE AT 2130 AND THE PATIENT SLEPT SEVERAL HOURS. THE PATIENT IS RESTING AT THIS TIME, WILL CONTINUE TO MONITOR.
[2018-09-04 05:10] LABS: BASOPHILS ABSOLUTE AUTO 0.02 K/mm3 (0.00-0.23); BASOPHILS PERCENT AUTO 0 % (0-2); EOSINOPHILS ABSOLUTE AUTO 0.07 K/mm3 (0.00-0.68); EOSINOPHILS PERCENT AUTO 1 % (0-6); Hemoglobin 9.2 g/dL (13.5-17.5); IMMATURE GRAN ABSOLUTE AUTO 0.29 K/mm3 (0.00-0.10); IMMATURE GRAN PERCENT AUTO 4 % (0-1); LYMPHOCYTES ABSOLUTE AUTO 0.63 K/mm3 (0.84-5.20); LYMPHOCYTES PERCENT AUTO 9 % (21-46); MONOCYTES ABSOLUTE AUTO 0.63 K/mm3 (0.16-1.47); MONOCYTES PERCENT AUTO 9 % (4-13); Mean Corpuscular HGB 28.6 pg (26.0-34.0); Mean Corpuscular HGB Conc 31.7 g/dL (31.5-36.5); Mean Corpuscular Volume 90 fL (80-100); Mean Platelet Volume 10.1 fL (9.1-12.4); NEUTROPHILS ABSOLUTE AUTO 5.34 K/mm3 (1.96-9.15); NEUTROPHILS PERCENT AUTO 77 % (41-73); NRBC ABSOLUTE 0.06 K/mm3 (0.00-0.02); NRBC Auto 0.9 /100 WBC (0.0-0.2); Platelet Count 240 K/mm3 (150-400); RDW Coefficient Variation 14.9 % (11.7-14.2); RDW Standard Deviation 48.9 fL (35.1-46.3); Red Blood Cell Count 3.22 M/mm3 (4.30-5.90); White Blood Cell Count 6.98 K/mm3 (4.00-11.30)
[2018-09-04 05:29] LABS: Calcium, Blood 8.7 mg/dL (8.5-10.1); Creatinine, Blood 2.46 mg/dL (0.60-1.20); Potassium, Blood 4.5 mmol/L (3.5-5.5)
--- NOTE | 2018-09-04 18:41 | NUR ---
PATIENT HAS BEEN UP IN CHAIR THIS SHIFT. WAS A TWO ASSIST . FAMILY CONTINUES TO BE AT BEDSIDE AND NOT SURE OF PROGRESSION OF PATIENTS CONDITION. HE HAD SMALL BM AFTER LACTOLOSE WAS GIVEN.
--- NOTE | 2018-09-04 18:51 | NUR ---
Lengthy discussion with the family today. They are all trying to make sense of his prognosis and trying to develop the best plan for him. Reviewed palliative vs curative treatment for his cancer. Reviewed recent events and current illness. Reviewed code status and POLST form. They have extensive questions about this and want to go through every eventuality for the pt's future care and every posibility of complication that could happen. This was an exhaustive effort by palliative care to establish and reinforce a plan with the family. There are language barriers for the - she does not speak Greek as a first language. There are two sons present and also a daughter. They are asking good questions, but they are redundant and need extra time to understand what is happening. Frequent education and reinforcing from nurses will be needed for all aspects of his care. Family will need updates often. Family seems to agree that patient would not want to be a full code. However, there are differing views about what interventions he would be accepting of, as far as life saving measures. POLST form reviewed several times, I did not feel comfortable filling the POLST form out, as family may want to change it as soon as tomorrow if they receive other new information. Booklet, Hard Choices for [place] [employer] given, along with What you Need to Know About Life Sustaining Measures. They also have copy of the POLST they are reviewing. Plans were made to discuss this again with them on Friday with this Palliative Nurse. Will plan on following up with patient and family on Friday. Let them know that if they needed anything that a Palliative nurse will be here over the weekend. They have the palliative office phone number.
[2018-09-05 00:45] LABS: Bilirubin, Urine Neg (Neg); Blood, Urine 2+ (Neg); Glucose Qualitative, Urine Neg (Neg); Ketones, Urine Neg (Neg); Leukocyte Esterase, Urine 1+ (Neg); Nitrite, Urine Neg (Neg); Protein, Urine 2+ (Neg); Specific Gravity, Urine 1.005 (1.003-1.022); Urobilinogen, Urine NORM (Normal)
[2018-09-05 01:43] LABS: Appearance, Urine Clear (Clear); Color, Urine Yellow (P-Yellow)
[2018-09-05 01:44] LABS: Amorphous Light (0-Heavy); Bacteria Few /hpf; Mucus Light (0-Heavy); Red Blood Cells, Urine 0-2 /hpf (0-2); Squamous Epithelial Cells Rare /hpf (Few)
--- NOTE | 2018-09-05 04:31 | NUR ---
SHIFT SUMMARY THE PATIENT PRESENTED THIS SHIFT ASLEEP, BUT WAKE UP AROUND 2000 HOURS. THE PATIENT'S VITALS WNL, A&O TO SELF AND WITH LUNGS THAT WERE CLEAR BUT DIM IN THE BASES. THE PATIENT TOOK HIS PILLS WITH THICKENED WATER, AND REQUESTED DINNER. THE PATIENT ATE ABOUT HALF OF HIS DINNER MEAL. THE PATIENT'S SPOUSE CALLED AND TALKED TO THE PATIENT. THE PATIENT HAS SLEPT MOST OF THE SHIFT WITH HIS C-PAP ON. THE OATIENT IS RESTING AT THIS TIME, WILL CONTINUE TO MONITOR
[2018-09-05 04:46] LABS: BASOPHILS ABSOLUTE AUTO 0.03 K/mm3 (0.00-0.23); BASOPHILS PERCENT AUTO 0 % (0-2); EOSINOPHILS ABSOLUTE AUTO 0.11 K/mm3 (0.00-0.68); EOSINOPHILS PERCENT AUTO 2 % (0-6); Hematocrit 28.9 % (37.0-53.0); Hemoglobin 9.3 g/dL (13.5-17.5); IMMATURE GRAN ABSOLUTE AUTO 0.41 K/mm3 (0.00-0.10); IMMATURE GRAN PERCENT AUTO 6 % (0-1); LYMPHOCYTES ABSOLUTE AUTO 0.88 K/mm3 (0.84-5.20); LYMPHOCYTES PERCENT AUTO 13 % (21-46); MONOCYTES ABSOLUTE AUTO 0.85 K/mm3 (0.16-1.47); MONOCYTES PERCENT AUTO 12 % (4-13); Mean Corpuscular HGB 28.4 pg (26.0-34.0); Mean Corpuscular HGB Conc 32.2 g/dL (31.5-36.5); Mean Corpuscular Volume 88 fL (80-100); Mean Platelet Volume 10.3 fL (9.1-12.4); NEUTROPHILS ABSOLUTE AUTO 4.65 K/mm3 (1.96-9.15); NEUTROPHILS PERCENT AUTO 67 % (41-73); NRBC ABSOLUTE 0.09 K/mm3 (0.00-0.02); NRBC Auto 1.3 /100 WBC (0.0-0.2); Platelet Count 255 K/mm3 (150-400); RDW Coefficient Variation 15.3 % (11.7-14.2); RDW Standard Deviation 49.2 fL (35.1-46.3); Red Blood Cell Count 3.28 M/mm3 (4.30-5.90); White Blood Cell Count 6.93 K/mm3 (4.00-11.30)
[2018-09-05 05:05] LABS: Bun/Creatinine Ratio 24.3 (12.0-20.0); Calcium, Blood 8.6 mg/dL (8.5-10.1); Creatinine, Blood 1.89 mg/dL (0.60-1.20); Potassium, Blood 4.4 mmol/L (3.5-5.5)
[2018-09-05 05:33] LABS: BASOPHILS ABSOLUTE MAN 0.06 K/mm3 (0.00-0.23); BASOPHILS PERCENT MAN 1 % (0-2); EOSINOPHILS ABSOLUTE MAN 0.06 K/mm3 (0.00-0.68); EOSINOPHILS PERCENT MAN 1 % (0-6); LYMPHOCYTES ABSOLUTE MAN 0.55 K/mm3 (0.84-5.20); LYMPHOCYTES PERCENT MAN 8 % (21-46); METAMYELOCYTE ABSOLUTE MAN 0.13 K/mm3 (0.00-0.00); METAMYELOCYTE PERCENT MAN 2 % (0-0); MONOCYTES ABSOLUTE MAN 0.69 K/mm3 (0.16-1.47); MONOCYTES PERCENT MAN 10 % (4-13); MYELOCYTE ABSOLUTE MAN 0.13 K/mm3 (0.00-0.00); MYELOCYTE PERCENT MAN 2 % (0-0); NEUTROPHILS ABSOLUTE MAN 5.26 K/mm3 (1.96-9.15); SEG NEUTROPHILS PERCENT MAN 76 % (41-73); TOTAL CELLS COUNTED 100
[2018-09-05 07:12] LABS: COMPLEMENT C3, SERUM 174 mg/dL (82-167); COMPLEMENT C4, SERUM 32 mg/dL (14-44)
[2018-09-05 08:48] LABS: Stool Occult Blood Guaiac 1 Neg (Neg)
--- NOTE | 2018-09-05 18:11 | NUR ---
SHIFT SUMMARY PT AXO TO SELF AND FAMILY THOUGH WAS SEEING THINGS THAT WERE NOT PRESENT. PT REORIENTED PRN. PT AND SPOUSE REFUSED AFTERNOON VITALS AND CGB UNTIL PT AWOKE, STILL WAITING FOR PT TO WAKE AT THIS TIME. SPOUSE PRESENT AT THIS TIME. VSS THOUGH PT BRADYCARDIC IS HIS BASELINE. PT UP TO CHAIR FOR LUNCH. PT WORKED WITH PHYSICAL THERAPY, SEE NOTE. ILIOSTOMY APPLIANCE CHANGED THIS SHIFT BY HIS , WNL. DRAINING AND PATENT. IV SALINE LOCKED AND PATENT. BED IN LOW POSITION, CALL LIGHT WITHIN REACH, BED ALARM ON.
--- NOTE | 2018-09-06 05:04 | NUR ---
SUMMARY: A/O TO SELF/FAMILY BUT FORGETFUL TO TIME, PLACE AND EVENT. BED ALARM ON FOR SAFETY. 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 ASP PREC'S IN PLACE AND PT HAD MEDS CRUSHED IN APPLESAUCE BUT THOSE THAT COULDN'T BE WERE TOLERATED W/SIPS OF WATER AND W/O DIFFICULTY. PO INTAKE OF ENSURE AND WATER WAS ENCOURAGED. SCHEDULED MIRALAX, COLACE AND LACTULOSE WERE RECIEVED BUT STILL NO BM THIS SHIFT. SPO2 WNL ON 3L O2 BLEED IN VIA CPAP AT HS AND ON RA WHILE AWAKE. TURN SCHEDULE WAS MAINTAINED AND ILEOSTOMY PATENT/DRAINING. SCHEDULED MS CONTIN WAS EFFECTIVE AT CONTROLLING CHRONIC PAIN. NO ACUTE CHANGES, VSS/AFEBRILE. WILL MONITOR AND REPORT TO DAY RN.
[2018-09-06 05:18] LABS: Hematocrit 32.2 % (37.0-53.0); Hemoglobin 10.1 g/dL (13.5-17.5)
[2018-09-06 05:45] LABS: Bun/Creatinine Ratio 23.4 (12.0-20.0); Creatinine, Blood 1.58 mg/dL (0.60-1.20)
--- NOTE | 2018-09-06 18:22 | NUR ---
SHIFT SUMMARY PT AXO TO SELF AND FAMILY, PLEASANT AND COOPERATIVE WITH CARE THOUGH CONFUSED AT TIMES. FORGETS LIMITATIONS. VSS THOUGH BP ELEVATED, MEDICATED PER EMAR. PT HAD VERY LARGE BM THIS SHIFT UNFORMED AND BROWN. PT UP TO CHAIR FOR MEALS. TOLERATED WELL. PT ALSO HAD A SHOWER THIS SHIFT. ILIOSTOMY DRAINING AND PATENT. IV PATENT AND SALINE LOCKED. BED IN LOW POSITION, CALL LIGHT WITHIN REACH. NO ACUTE CHANGES THIS SHIFT.
--- NOTE | 2018-09-07 04:26 | NUR ---
SUMMARY: A/O TO SELF AND FAMILY BUT CONT'S TO HAVE VISUAL DISTURBANCES AND WEAKNESS POST OLD CVA. STATED STRENGTH AND BALANCE IMPROVED FROM PREVIOUS UPON T/F FROM CHAIR TO BED. HE TOLERATED PILLS CRUSHED IN APPLESAUCE BUT ALSO TOOK MS CONTIN WHOLE IN WATER W/O DIFFICULTY. ASP PREC'S AND TURN SCHEDULE MAINTAINED. ILEOSTOMY IS PATENT/DRAINING. NO BM'S THIS SHIFT AND REFUSED ALL BOWEL MEDS D/T PT HAVING AN XL BM TODAY WHICH SHE FELT WAS SUFFICIENT. PO INTAKE ENCOURAGED. HE WORE CPAP W/3L O2 BLEED W/RESPS E/U AND SPO2 WNL. PT DENIED NEEDING ANY PRN MEDS THIS SHIFT. NO ACUTE CHANGES, VSS AND AFEBRILE. PT AWAITING SNFF W/LIKELY D/C THIS WEEK. WILL MONITOR AND REPORT TO DAY RN.
[2018-09-07 05:29] LABS: Hematocrit 32.7 % (37.0-53.0); Hemoglobin 9.5 g/dL (13.5-17.5); Mean Corpuscular HGB 27.9 pg (26.0-34.0); Mean Corpuscular HGB Conc 29.1 g/dL (31.5-36.5); Mean Platelet Volume 10.1 fL (9.1-12.4); NRBC ABSOLUTE 0.06 K/mm3 (0.00-0.02); NRBC Auto 0.6 /100 WBC (0.0-0.2); Platelet Count 249 K/mm3 (150-400); RDW Coefficient Variation 15.3 % (11.7-14.2); RDW Standard Deviation 53.2 fL (35.1-46.3); White Blood Cell Count 9.79 K/mm3 (4.00-11.30)
[2018-09-07 05:51] LABS: Mean Corpuscular Volume 96 fL (80-100)
[2018-09-07 05:53] LABS: Anion Gap 12 mmol/L (6-16); Blood Urea Nitrogen 27 mg/dL (8-24); Bun/Creatinine Ratio 21.6 (12.0-20.0); CO2, Blood 15 mmol/L (21-32); Calcium, Blood 8.6 mg/dL (8.5-10.1); Chloride, Blood 111 mmol/L (98-108); Creatinine, Blood 1.25 mg/dL (0.60-1.20); Glomerular Filtration Rate 60 (60-); Glucose, Blood 121 mg/dL (70-99); Phosphorus, Blood 3.1 mg/dL (2.5-4.9); Potassium, Blood 3.9 mmol/L (3.5-5.5); Sodium, Blood 138 mmol/L (136-145)
[2018-09-07 06:21] LABS: BAND PERCENT MAN 2 % (0-8); BASOPHILS PERCENT MAN 0 % (0-2); EOSINOPHILS ABSOLUTE MAN 0.48 K/mm3 (0.00-0.68); EOSINOPHILS PERCENT MAN 5 % (0-6); LYMPHOCYTES ABSOLUTE MAN 1.76 K/mm3 (0.84-5.20); LYMPHOCYTES PERCENT MAN 18 % (21-46); METAMYELOCYTE ABSOLUTE MAN 0.29 K/mm3 (0.00-0.00); METAMYELOCYTE PERCENT MAN 3 % (0-0); MONOCYTES ABSOLUTE MAN 0.88 K/mm3 (0.16-1.47); MONOCYTES PERCENT MAN 9 % (4-13); MYELOCYTE ABSOLUTE MAN 0.09 K/mm3 (0.00-0.00); MYELOCYTE PERCENT MAN 1 % (0-0); NEUTROPHILS ABSOLUTE MAN 6.26 K/mm3 (1.96-9.15); SEG NEUTROPHILS PERCENT MAN 62 % (41-73); TOTAL CELLS COUNTED 100
--- NOTE | 2018-09-07 13:58 | NUR ---
Spiritual care visit conducted. Patient was lying in bed and alert when I entered the room. Patient is known to me. Patient shared with me about his pain level and so I called the nurse. Patient and nurse discussed pain management options. Patient shared with me about his interpretation of the events that led to his current health condition. Daughter, Tatiana was bedside and patiently rehersed the corrected version of those events and did so at least 4 or 5 times during my visit. Patient also shared about his shania, his family and his concerns about recovery from his current health crisis. I listened empathically, provided companionship and prayer. Patient showed signs of reduced stress.
--- NOTE | 2018-09-07 18:16 | NUR ---
SHIFT SUMMARY PT HAS BEEN C/O BACK PAIN A LOT THIS SHIFT. PT SAT UP IN CHAIR FOR BREAKFAST AND WAS UNABLE TO TOLERATE SITTING FOR VERY LONG. THIS RN HAS MEDICATED FOR BACK PAIN X2 WITH PRN AND ONCE WITH SCHEDULED PAIN MEDICATION. PT SLEPT A LOT OF THE AFTERNOON. NOT MUCH OF AN APPETITE. PLANS FOR POSSIBLE DISCHARGE TO SNF TOMORROW IF BED AVAILABLE. NO ACUTE CHANGES. CALL LIGHT IN REACH. WILL CONTINUE TO MONITOR AND REPORT TO ONCOMING RN. BED ALARM ON FOR SAFETY.
--- NOTE | 2018-09-08 05:18 | NUR ---
Rn summary: Patient is alert and oriented x2. He is very pleasant and cooperatiive. Pt has vision deficits and can not see peripherally. Pt has a urostomy and has had yellow urine. Pt blood sugar was 154 and he did have 3 units of novalog. Patient has slept with C-Pap/3 L O2 most of the night. He does have some underlying confusion and forgetfulness. He has not tried to get out of bed on his own. Waiting for bed placement to SNF. wishes to notified as soon as it is known when he is going. She wants to be here and bring his clothes. Call light in reach with freq monitoring.
--- NOTE | 2018-09-08 11:48 | NUR ---
Spiritual care visit conducted. Patient's family was waiting for me when I entered the room. Patient's , Carrie, and daughter, Trista, had questions about care for patient after leaving the hospital, about how to emotioanlly steady the patient as he struggles with his new limitations and about my experience with chemotherapy. I listened empathically, gave suggestions about ways to emotionally/spiritually support the patient, discussed ways the family can work toward the best plan of care, I told about my personal chemotherapy experience and I provided prayer. Patient and family expressed gratitude for for my time and care.
--- NOTE | 2018-09-08 16:51 | NUR ---
SHIFT SUMMARY PATIENT SLIGHTLY ALTERED MENTAL STATUS. SPEAKS THOUGH HE IS NOT ALWAYS AWARE OF CURRENT ILLNESS. PATIENT THINKS HE CAN GO HOME AND BE ABLE TO CARE FOR HIMSELF. HE CAN PIVOT WITH 2 PERSON ASSIST, FWW AND GAITBELT. LEFT LEG AND ARM WEAK AND IMPAIRED MOVMENT. DIFFICULT WITH HAND EYE COORDINATION. UNABLE TO SEE ANYTHING IN LEFT PERIPHERAL LINE OF SIGHT. HE CAN SEE RIGHT PERIPHERAL LINE OF SIGHT. ASPIRATION PRECAUTIONS. THIN LIQUID OK BUT NO STRAW. HE CAN FEED HIMSELF WITH SOME ASSISTANCE. IF HE HOLDS FOOD ITEM IN LEFT HAND HE CAN USE SPOON IN RIGHT HAND TO PUT FOOD IN MOUTH. JUNO AT BEDSIDE HE REFERS TO HER STEFANIE. CPAP AT NIGHT 3L O2. ROOM AIR DURING THE DAY. CONT. PULSE OX IN PLACE.
--- NOTE | 2018-09-08 16:58 | NUR ---
PAIN MANAGMENT I DISCUSSED PAIN CONTROL WITH DR. JULIO MANLEY BECAUSE PATIENT WAS IN SEVERE PAIN AFTER TAKING DOSE OF OXYCODONE 4 HOURS PREVIOUSLY. STATED HE TAKES PAIN MEDS MORE FREQUENTLY WHILE AT HOME. MED LIST WAS RECIEVED FROM [facility] UPON REQUEST. LONG ACTING MS CONTIN IS TAKEN AT HIGHER DOSE AT HOME BUT OXY IS TAKEN AT LOWER DOSE AT HOME. DR. MANLEY STATED SHE DOES NOT WANT TO INCREASE DOSE OF LONG ACTING OPIODS AT THIS TIME D/T POOR KIDNEY FUNCTION AND CURRENT AMS. WE WILL TRY TO SPACE OUT SHORT ACTING SO HE CAN HAVE 5 MG Q3 HOURS INSTEAD OF 10 MG Q6 AND SEE IF THAT HELPS MANAGE PAIN BETTER. I WILL PASS ON TO NIGHT NURSE TO UTILIZE TYLENOL WELL FOR BETTER PAIN MANAGMENT.
[2018-09-08] MEDS ORDERED: Omeprazole20 M1 PO (17:22)
--- NOTE | 2018-09-09 04:25 | NUR ---
SHIFT SUMMARY PATIENT HAD NO ACUTE CHANGES OBSERVED DURING THE SHIFT. AXO TO SELF, FAMILY, AND DIRECTIONS. TWO PERSON STAND PIVOT TO BSC W/FWW AND GAIT BELT. TAKES MEDS CRUSHED IN PUDDING. PATIENT ABLE TO SEE RIGHT PERIPHERAL LINE OF SIGHT. CBG 211. CPAP WITH 3L O2 W/CONTINUOUS PULSE OXIMETRY. WEARS IT ON/OFF T/O NIGHT. STATING 95% O2. SCHEDULE MS CONTIN 15 MG FOR CHRONIC BACK PAIN. UROSTOMY T JACKSON BAG PATENT. VSS/AFEBRILE. DENIES SOB AND N/V. CALL LIGHT IN REACH. WILL CONTINUE TO MONITOR UNTIL DAY SHIFT NURSE ASSUMES CARE.
--- NOTE | 2018-09-09 11:47 | NUR ---
HE IS VISITING NOW IN THE ROOM AND HIS CALLED TO SAY SHE WOULD BE IN SOON. HE HAD A SHOWER ON THE SHOWER CHAIR THIS MORNING AFTER SITTING UP IN THE CHAIR FOR BREAKFAST. HE DID NOT LIKE STAYING UP THAT LONG BUT WAS GLAD IN THE LONG RUN. NO CHANGES.
--- NOTE | 2018-09-09 14:40 | NUR ---
Spiritual care visit conducted. Patient and family seem more at ease today. Patient seemed to be more cognitively aware and able to focus. The family has a better grasp of the direction they are headed for the care of the patient after discharge. There was more laughter and less tension. I listened empathically, provided companionship and prayer. I will remain available to patient and family.
--- NOTE | 2018-09-09 14:45 | NUR ---
RECEIVED OXYCODONE FOR BREAKTHROUGH PAIN. HIS AND DAUGHTER HAVE GONE HOME FOR A WHILE. HE IS ASLEEP.
--- NOTE | 2018-09-09 17:10 | NUR ---
HE IS ASLEEP. HIS PLANS TO BE BACK AT DINNER TIME TO HELP HIM EAT. NO PROBLEMS WITH THE UROSTOMY BAG. HE TOOK ONE DOSE OF OXYCODONE THIS AFTERNOON. HE WAS ASKING FOR THE MORPHINE. I EXPLAINED THAT IT IS SCHEDULED BID. HE IS PLEASANTLY CONFUSED. HE HAS BEEN ON RA ALL AFTERNOON.
--- NOTE | 2018-09-10 04:59 | NUR ---
SHIFT SUMMARY: PT IS ALERT AND ORIENTED WITH MINOR CONFUSION. PT IS CALM, FRIENDLY AND COOPERATIVE WITH CARE. PT DID NOT USE HIS CALL LIGHT OVERNIGHT. PT'S FAMILY IN VISITING AT THE START OF SHIFT. PT TOLERATED CPAP OVERNIGHT. UROSTOMY INTACT AND DRAINING YELLOW URINE. PT REPORTS MINOR PAIN, GAVE SCHEDULED OXYCODONE. PT DENEIS NAUSEA, VOMITING, AND SOB. NO ACUTE CHANGES OR COMPLICATIONS THIS SHIFT. BED IN LOW POSITION, CALL LIGHT WITHIN REACH. WILL REPORT TO DAY NURSE.
--- NOTE | 2018-09-10 19:26 | NUR ---
HE AMBULATED IN THE ROOM THIS AM AND AGAIN THIS EVENING. IN BETWEEN, HE WAS UP IN THE RECLINER ALL DAY. HE ATE POORLY TODAY. NO C/O PAIN. NO DISTRESS. HE REMAINS PLEASANTLY CONFUSED. HE IS BLIND. HIS AND DAUGHTER VISITED X2 TODAY. VSS. NO CHANGES. POSSIBLE DISCHARGE TOMORROW.
--- NOTE | 2018-09-11 04:08 | NUR ---
PT ALERT AND ORIENTED X3; SPENT NIGHT IN ROOM; PT STILL STRUGGLES TO STAND AND AMBULATE VIA WALKER X 2 STANDBY ASSIST WITH GAIT BELT AND WALKER UTILIZED. PT IT TENTATIVELY PLANNING TO BE DISCHARGED TODAY TO [facility] FOR RE[facility]AB[facility]ATION. PT DENIES PAIN/NAUSEA.
--- NOTE | 2018-09-11 04:22 | NUR ---
I AGREE WITH SHAWNA WARREN.
--- NOTE | 2018-09-11 04:24 | NUR ---
PT RESTING COMFORTABLY IN BED WHILE WEARING CPAP THIS EVENING. DENIES PAIN OR NAUSEA. PT ABLE FOLLOW VERY SIMPLE VERBAL COMMANDS AND REQUIRES OCCASIONAL CUES WITH IADLS. PTS ILEOSTOMY DRAINING CLEAR YELLOW FLUID WITH SEDIMENT. NO RESPIRATORY DISTRESS NOTED.
[2018-09-11] MEDS ORDERED: CARV6.25 PO (14:18)
[2018-09-11] MEDS ORDERED: DOCU100 PO (14:19)
[2018-09-11] MEDS ORDERED: CLOP75 PO (14:20)
[2018-09-11] MEDS ORDERED: Humalog Mi100 UNIT/4 (14:22)
[2018-09-11] MEDS ORDERED: SENN187 PO (14:22)
--- NOTE | 2018-09-11 14:52 | NUR ---
DISCHARGE NOTE PATIENT DISCHARGED. BEING TRANSFERED TO FACILITY IN [place] FOR REHAB. A&O TO SELF, FAMILY, AND FOLLOWING DIRECTIONS. FORGETFUL AND REQUIRES REORIENTATION AT TIMES. MEDS CRUSHED IN APPLESAUCE. ORIGINALLY REFUSED MEDICATIONS THIS AM AND THEN WHEN MORE AWAKE WAS ABLE TO TAKE THEM. IV D/C, WNL. BEING DISCAHRGED WITH FAMILY WHO ARE GOING TO TAKE HIM TO [place]. ESCORTED OUT BY CHARGE NURSE ERNIE VIA WHEELCHAIR. FAMILY AT HIS SIDE, ALL BELONGINGS IN HAND. REPORT CALLED TO [facility].
--- NOTE | 2018-09-11 19:50 | NUR ---
Called by family to complete polst process after discussion with micheal on pt needs. POLST completed original sent with family copies sent for SNF and faxed to registry and and medical redords. completed careful discussion of care goals level of care. pt and family want DNR, they want limited treatment. they do not want life sustaining treatements such as intubation or cialysis. they woud possibly accept some ICU time if pt needed some medications that required monitoring. and daughter demonstarted understanding or document and plan of care. teir goal is quality care and will adjust level as he changes.
== END 2018-09-11 14:33 | DRG 250 ==
LOC: ER 21:45 → ICUW 08-30 01:20 → MEDS 08-30 01:20 → ICUE 08-30 01:20 → MEDS 09-01 16:29 → ENPENDDIS 09-11 12:54 → MEDS 09-11 14:33
PROVIDERS: Emergency Medicine; Family Medicine; Hospitalist; Internal Medicine; Internal Medicine Interventional Cardiology; ADMIT Hospitalist
PROC: 02703ZZ Dilation of Coronary Artery, One Artery, Percutaneous Approach (ICD-10-PCS; principal; 2018-08-30)
PROC: B2161ZZ Fluoroscopy of Right and Left Heart using Low Osmolar Contrast (ICD-10-PCS; 2018-08-30)
DX: T82.855A Stenosis of coronary artery stent, initial encounter (principal); I21.4 Non-ST elevation (NSTEMI) myocardial infarction; J18.9 Pneumonia, unspecified organism; E87.1 Hypo-osmolality and hyponatremia; R44.3 Hallucinations, unspecified; E87.2 Acidosis; N17.9 Acute kidney failure, unspecified; C78.00 Secondary malignant neoplasm of unspecified lung; C78.7 Secondary malignant neoplasm of liver and intrahepatic bile duct; C67.9 Malignant neoplasm of bladder, unspecified; Z79.82 Long term (current) use of aspirin; I25.2 Old myocardial infarction; Z87.891 Personal history of nicotine dependence; N18.3 Chronic kidney disease, stage 3 (moderate); E11.22 Type 2 diabetes mellitus with diabetic chronic kidney disease; F32.9 Major depressive disorder, single episode, unspecified; I25.10 Atherosclerotic heart disease of native coronary artery without angina pectoris; G25.81 Restless legs syndrome; Z79.84 Long term (current) use of oral hypoglycemic drugs; Z79.891 Long term (current) use of opiate analgesic; I44.7 Left bundle-branch block, unspecified; E66.9 Obesity, unspecified; Z68.33 Body mass index [BMI] 33.0-33.9, adult; E78.00 Pure hypercholesterolemia, unspecified; E78.5 Hyperlipidemia, unspecified; Z98.61 Coronary angioplasty status; I66.21 Occlusion and stenosis of right posterior cerebral artery; H53.462 Homonymous bilateral field defects, left side; I12.9 Hypertensive chronic kidney disease with stage 1 through stage 4 chronic kidney disease, or unspecified chronic kidney disease
CPT/HCPCS: 36415; 70450; 71045; 71260; 76770; 80047; 80048; 80053; 80069; 81001; 82272; 82550; 82607; 82728; 82746; 82947; 83010; 83540; 83550; 83605; 83735; 84145; 84484; 84550; 85014; 85018; 85025; 85027; 85045; 85049; 85347; 85610; 85730; 86160; 86850; 86900; 86901; 86923; 87040; 92507; 92523; 92526; 92610; 92920; 93005; 93010; 93306; 93454; 93571; 94640; 94660; 94762; 96365-59; 96366-59; 96368; 96375-59; 96376-59; 97110; 97112; 97116; 97163; 97166; 97530; 97535; 99152; 99153; 99285-25; C1725; C1760; C1769; C1887; C1894; J0461; J0692; J0696; J1644; J1650; J2250; J2270; J2405; J3010; J3370; J3420; J7030; J7050; J7120; P9016; Q9967

== ENCOUNTER 2018-10-11 20:31 | Inpatient (IN) | payer MEDICARE ==
[~2018-10-11] VITALS: Ht 180.3 cm; Wt 106.6 kg
[~2018-10-11 20:31] MED LIST changes: +ACET500 PO; +AMLO5 PO; +ATOR20 PO; +CARV6.25 PO; +CLOP75 PO; +Humalog Mi100 UNIT/4; +Isosorbide Mono30 MG PO; +LISI5 PO
[2018-10-11 21:11] LABS: BASOPHILS ABSOLUTE AUTO 0.03 K/mm3 (0.00-0.23); BASOPHILS PERCENT AUTO 0 % (0-2); EOSINOPHILS ABSOLUTE AUTO 0.55 K/mm3 (0.00-0.68); EOSINOPHILS PERCENT AUTO 5 % (0-6); Hematocrit 30.6 % (37.0-53.0); Hemoglobin 9.5 g/dL (13.5-17.5); IMMATURE GRAN ABSOLUTE AUTO 0.04 K/mm3 (0.00-0.10); IMMATURE GRAN PERCENT AUTO 0 % (0-1); LYMPHOCYTES ABSOLUTE AUTO 1.52 K/mm3 (0.84-5.20); LYMPHOCYTES PERCENT AUTO 15 % (21-46); MONOCYTES ABSOLUTE AUTO 0.93 K/mm3 (0.16-1.47); MONOCYTES PERCENT AUTO 9 % (4-13); Mean Corpuscular HGB 28.2 pg (26.0-34.0); Mean Corpuscular Volume 91 fL (80-100); Mean Platelet Volume 10.3 fL (9.1-12.4); NEUTROPHILS ABSOLUTE AUTO 7.21 K/mm3 (1.96-9.15); NEUTROPHILS PERCENT AUTO 70 % (41-73); Platelet Count 315 K/mm3 (150-400); RDW Coefficient Variation 15.6 % (11.7-14.2); RDW Standard Deviation 51.8 fL (35.1-46.3); Red Blood Cell Count 3.37 M/mm3 (4.30-5.90); White Blood Cell Count 10.28 K/mm3 (4.00-11.30)
[2018-10-11 21:28] LABS: Alanine Aminotransfer (ALT/SGP 17 U/L (12-78); Albumin, Blood 3.3 g/dL (3.4-5.0); Albumin/Globulin Ratio 0.6 (0.8-1.8); Alk Phos 85 U/L (50-136); Anion Gap 11 mmol/L (6-16); Aspartate Aminotrans (AST/SGOT 13 U/L (12-37); Bilirubin, Total 0.5 mg/dL (0.1-1.0); Blood Urea Nitrogen 53 mg/dL (8-24); Bun/Creatinine Ratio 17.8 (12.0-20.0); CO2, Blood 17 mmol/L (21-32); Calcium, Blood 9.2 mg/dL (8.5-10.1); Chloride, Blood 103 mmol/L (98-108); Creatinine, Blood 2.97 mg/dL (0.60-1.20); Globulin, Blood 5.2 g/dL (2.2-4.0); Glomerular Filtration Rate 22 (60-); Glucose, Blood 117 mg/dL (70-99); Potassium, Blood 5.8 mmol/L (3.5-5.5); Sodium, Blood 131 mmol/L (136-145); Total Protein, Blood 8.5 g/dL (6.4-8.2); Troponin I <0.015 ng/mL (0.000-0.040)
[2018-10-12 05:34] LABS: Bun/Creatinine Ratio 18.1 (12.0-20.0); Calcium, Blood 9.1 mg/dL (8.5-10.1); Creatinine, Blood 2.71 mg/dL (0.60-1.20); Potassium, Blood 5.2 mmol/L (3.5-5.5)
--- NOTE | 2018-10-12 08:09 | NUR ---
PATIENT DID NOT WANT ANY BREAKFAST THIS SHIFT. WHEN I BROUGHT TRAY IN AND WOKE PATIENT UP HE STATED TO ME I DONT WANT ANY BREAKFST AND WENT BACK TO SLEEP. I OFFERED TO HELP PATIENT AND HE DECLINED. TRAY WAS REMOVED FROM AND WILL CHECK BACK WITH APTIENT LATER,
--- NOTE | 2018-10-12 14:32 | NUR ---
Case conferenced with Dr and RN. Per Dr request I attempted to visit patient when present to review POLST and answer questions re: advanced care planning, hospice, palliative care and POLST options. had gone home for the afternoon. Plan made with RN for her to page me if returns today or in am when she is in to visit. Pt is conversant and trying to use his phone when I arrive to the room. I assisted him in calling his son's phone number per his request. He left a message on the son's phone. Pt introduced himself to me and without prompting told me he was sent to the hospital by [facility] and that he had been admitted to [facility] yesterday. He denies distress or pain but appears slightly anxious with attempts to use the phone. I am not observing any nonverbal painful behaviors or indicators. Time spent in conversation with pt but he did not identify any needs at this time, other than getting ahold of his son by phone. Palliative Care will try again to connect with pt and family when they are present.
--- NOTE | 2018-10-12 15:08 | NUR ---
IVF'S CONTINUE. HE HAS NO COMPLAINTS EXCEPT HIS CHRONIC PAIN IN ABD AND SOMETIMES IN HIS LEFT CHEST WALL. HE IS PLEASANTLY CONFUSED. HE WAS NOT ORTHOSTATIC WHEN CHECKED. HIS BP AND PULSE BOTH WENT UP WHEN HE STOOD. HE DID FEEL DIZZY WITH STANDING THOUGH. SENNA GIVEN IN ADDITION TO HIS SCHEDULED BOWEL CARE MEDS HE RECEIVED THIS MORNING. HIS WANTED TO MAKE SURE WE GIVE HIM MUCH BOWEL CARE NECESSARY. SHE SAYS TODAY IS DAY 3 OF NO BM. SHE ALSO WANTS HIM TO GET HIS OXYCODONE AROUND THE CLOCK. HIS PAIN HAS BEEN MILD ALL DAY. PT IS WITH HIM NOW.
--- NOTE | 2018-10-12 16:23 | NUR ---
Spiritual care visit conducted. Patient was lying in bed and alert when I entered the patient's room. Patient openly shared about his current medical situation, his current living arrangements and his family unit complications. Patient would be focused and coherant one moment and then say something that did not make sense at all the next moment. Patient seemed to have a great attitude about this and was able to laugh at himself. I listened to patient and provided companionship and prayer. Patient responded well and and showed signs of an elevated mood.
--- NOTE | 2018-10-12 18:34 | NUR ---
HE HAS HAD AN UNEVENTFUL DAY. NO COMPLAINTS EXCEPT FOR SPORADICALLY SAYING HE WANTS MORPHINE. HIS HAS NOT RETURNED TONIGHT YET. HE HAD A YOUNG COUPLE VISIT FOR AN HOUR MID-AFTERNOON. IVF'S CONTINUE AT 75/HR. EVENING DOSE OF COREG GIVEN, THOUGH AM DOSE WAS HELD BECAUSE OF BRADYCARDIA.
--- NOTE | 2018-10-13 04:48 | NUR ---
PLAN CONSULTANT SUMMARY NO ACUTE CHANGES THIS SHIFT. PT ALERT AND ORIENTED TO SELF AND FAMILY BUT IS PLEASANT AND FOLLOWS DIRECTION. THINKS HE IS IN MEDICAL WING OF SHIP MOST OF THE TIME. TREATED FOR PAIN WITH SCHEDULED MS CONTIN. PT HAS RESTED COMFORTABLY THROUGH MOST OF THE SHIFT. PT PROBABLY DC HOME LATER TODAY PENDING MORNING LAB WORK. VSS, WILL CONTINUE TO MONITOR.
[2018-10-13 04:49] LABS: BASOPHILS ABSOLUTE AUTO 0.04 K/mm3 (0.00-0.23); BASOPHILS PERCENT AUTO 1 % (0-2); EOSINOPHILS ABSOLUTE AUTO 0.51 K/mm3 (0.00-0.68); EOSINOPHILS PERCENT AUTO 8 % (0-6); Hematocrit 28.8 % (37.0-53.0); Hemoglobin 8.6 g/dL (13.5-17.5); IMMATURE GRAN ABSOLUTE AUTO 0.03 K/mm3 (0.00-0.10); IMMATURE GRAN PERCENT AUTO 1 % (0-1); LYMPHOCYTES ABSOLUTE AUTO 0.96 K/mm3 (0.84-5.20); LYMPHOCYTES PERCENT AUTO 15 % (21-46); MONOCYTES ABSOLUTE AUTO 0.69 K/mm3 (0.16-1.47); MONOCYTES PERCENT AUTO 11 % (4-13); Mean Corpuscular HGB Conc 29.9 g/dL (31.5-36.5); Mean Platelet Volume 10.1 fL (9.1-12.4); NEUTROPHILS ABSOLUTE AUTO 4.21 K/mm3 (1.96-9.15); NEUTROPHILS PERCENT AUTO 65 % (41-73); Platelet Count 249 K/mm3 (150-400); RDW Coefficient Variation 15.5 % (11.7-14.2); RDW Standard Deviation 53.7 fL (35.1-46.3); Red Blood Cell Count 3.07 M/mm3 (4.30-5.90); White Blood Cell Count 6.44 K/mm3 (4.00-11.30)
[2018-10-13 04:50] LABS: Mean Corpuscular Volume 94 fL (80-100)
[2018-10-13 05:08] LABS: Albumin, Blood 2.8 g/dL (3.4-5.0); Anion Gap 9 mmol/L (6-16); Blood Urea Nitrogen 38 mg/dL (8-24); Bun/Creatinine Ratio 16.2 (12.0-20.0); CO2, Blood 18 mmol/L (21-32); Calcium, Blood 8.6 mg/dL (8.5-10.1); Chloride, Blood 109 mmol/L (98-108); Creatinine, Blood 2.34 mg/dL (0.60-1.20); Glomerular Filtration Rate 29 (60-); Glucose, Blood 84 mg/dL (70-99); Phosphorus, Blood 3.6 mg/dL (2.5-4.9); Potassium, Blood 4.6 mmol/L (3.5-5.5); Sodium, Blood 136 mmol/L (136-145)
--- NOTE | 2018-10-13 11:17 | NUR ---
Spiritual care visit conducted. Patient is confused, stating that [place] is on a [place] ship and that we have to follow the orders of the captain. 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 Patient said that he was having pain in his chest and was grimcing with his face. I went out to tell his nurse about the pain, and when I returned about asked him if he was having any pain he stated that he was not. I listened empathically, provided companionship and prayer. Patient responded well and even said a brief and beautiful prayer for me. Patient thanked me for the visit.
--- NOTE | 2018-10-13 15:40 | NUR ---
HE HAS BEEN SEEN BY OUR UPHOLSTERY INSTRUCTOR AND A CAREGIVER FROM AN OUTSIDE AGENCY CAME HERE TO INTERVIEW THE PATIENT AND HIS REGARDING HELP AT HOME. THE APPT WAS PREVIOUSLY SET FOR TODAY IN HIS HOME BUT HE ENDED UP HERE.
--- NOTE | 2018-10-13 17:43 | NUR ---
Pal Care RN visit: Pt was just getting ready to work with PT in his room. I visited with after a agency had been in to assess pt and speak with this afternoon. Pt continues to be alert, conversant and mostly oriented but he also continues to make statements that don't make any sense mixed in with seemingly normal conversation. We left room so PT could work with Tu. Pt's , Hanh and I reviewed a recently completed POLST that she completed for her in August with another Pal Care RN. It is consistent with their wishes and pt's DNR orders/arm band. , Hanh, reports that at this time they wish to continue to seek treatment for pt's medical issues but do not want agressive/resuscitation measures employed if he is in respiratory failure or has a cardiac arrest. They chose DNR, Limited treatment and No feeding by tube. They would be ok with resp support of CPAP or BPAP for a short while. POLST has been scanned and is in EMR currently. It is missing some informaion regarding contacts from page 2. asked that she and her daughter, Trista be added. Hanh Scott [phone] , and yulietTrista [phone] added and this information faxed to medical records. I will also ask admitting to add yuliet to family contact information on pt's face sheet. Pt's PCP is Ana Perez at the [facility]. states that PCP asked if they would like his care transfered to the [facility], due to pt's declining mobility and the growing burden for him to leave his home for medical care. had questions regarding that and I attempted to answer, based on my knowledge of the program. I asked her to follow up with PCP if she felt that would be helpful to them. Currently is undecided. We discussed Hospice services and care and does not feel they would be interested in it at this time but has information to discuss with PCP further if her husbands health deteriorates and they would like EOL care. She said his cancer is low on the list of priorities at this time as they are more worried about his heart. They are trying to get a referral from the [facility] to discuss heart issues and oncology issues further. The [place] is assisting with home caregivers per . If pt does not already have Home Health I would recommend HH if pt is d/c'd to home for RN,PT/OT, cg training for safety with mobility, personal care & possibly UI LEAD DEVELOPER for ongoing care planning/increasing support in home. was very appreciative of our conversation and the information provided as well as review of the POLST. Pal Care will remain available as needed.
--- NOTE | 2018-10-13 18:03 | NUR ---
PATIENT DECLINED DINNER TRAY WHEN BROUGHT INTO ROOM. PATIENT WAS OFFERED ALTERANTIVES AND PATIENT DECLINED. PATIENT DID NOT EAT DINNER THIS SHIFT. RN NOTFIED.
--- NOTE | 2018-10-14 04:19 | NUR ---
SHIFT SUMMARY NO CHANGES OVERNIGHT, PT PLESANTLY CONFUSED. ANSWERS TO SOME QUESTIONS APPROPRIATLY. PT RESTS T/O MOST OF SHIFT. WEARS CPAP. HE REFUSES BIOX, REFUSAL FORM SIGNED. IVF INFUSING ORDERED. UROSTOMY PATENT AND DRAINING. ASSESSMENT UNCHANGED. WILL CONTINUE TO MONITOR AND REPORT TO ONCOMING RN.
[2018-10-14 05:10] LABS: BASOPHILS ABSOLUTE AUTO 0.03 K/mm3 (0.00-0.23); BASOPHILS PERCENT AUTO 1 % (0-2); EOSINOPHILS ABSOLUTE AUTO 0.46 K/mm3 (0.00-0.68); EOSINOPHILS PERCENT AUTO 7 % (0-6); Hematocrit 26.4 % (37.0-53.0); IMMATURE GRAN ABSOLUTE AUTO 0.02 K/mm3 (0.00-0.10); IMMATURE GRAN PERCENT AUTO 0 % (0-1); LYMPHOCYTES ABSOLUTE AUTO 1.09 K/mm3 (0.84-5.20); LYMPHOCYTES PERCENT AUTO 17 % (21-46); MONOCYTES ABSOLUTE AUTO 0.69 K/mm3 (0.16-1.47); MONOCYTES PERCENT AUTO 11 % (4-13); Mean Corpuscular HGB 28.1 pg (26.0-34.0); Mean Corpuscular HGB Conc 30.3 g/dL (31.5-36.5); Mean Corpuscular Volume 93 fL (80-100); Mean Platelet Volume 9.7 fL (9.1-12.4); NEUTROPHILS ABSOLUTE AUTO 4.04 K/mm3 (1.96-9.15); NEUTROPHILS PERCENT AUTO 64 % (41-73); Platelet Count 243 K/mm3 (150-400); RDW Coefficient Variation 15.5 % (11.7-14.2); RDW Standard Deviation 53.2 fL (35.1-46.3); Red Blood Cell Count 2.85 M/mm3 (4.30-5.90); White Blood Cell Count 6.33 K/mm3 (4.00-11.30)
[2018-10-14 05:43] LABS: Magnesium, Blood 1.5 mg/dL (1.6-2.4)
[2018-10-14 05:44] LABS: Albumin, Blood 2.6 g/dL (3.4-5.0); Anion Gap 9 mmol/L (6-16); Blood Urea Nitrogen 30 mg/dL (8-24); Bun/Creatinine Ratio 15.1 (12.0-20.0); CO2, Blood 17 mmol/L (21-32); Calcium, Blood 8.6 mg/dL (8.5-10.1); Chloride, Blood 112 mmol/L (98-108); Creatinine, Blood 1.99 mg/dL (0.60-1.20); Glomerular Filtration Rate 35 (60-); Glucose, Blood 83 mg/dL (70-99); Phosphorus, Blood 3.3 mg/dL (2.5-4.9); Potassium, Blood 4.4 mmol/L (3.5-5.5); Sodium, Blood 138 mmol/L (136-145)
--- NOTE | 2018-10-14 15:23 | NUR ---
D/C INSTRUCTIONS PROVIDED AND EXPLAINED TO PT AND PT'S SPOUSE. IV REMOVED. PT D/C VIA WHEELCHAIR WITH SPOUSE AND SON.
== END 2018-10-14 14:39 | disposition home or self-care (01) | DRG 683 ==
LOC: ER 20:31 → MEDS 20:32 → ENPENDDIS 10-14 12:52 → MEDS 10-14 14:39
PROVIDERS: Emergency Medicine; Family Medicine; ADMIT Hospitalist
DX: N17.9 Acute kidney failure, unspecified (principal); C78.7 Secondary malignant neoplasm of liver and intrahepatic bile duct; C78.00 Secondary malignant neoplasm of unspecified lung; I69.354 Hemiplegia and hemiparesis following cerebral infarction affecting left non-dominant side; C68.0 Malignant neoplasm of urethra; I95.1 Orthostatic hypotension; Z51.5 Encounter for palliative care; I12.9 Hypertensive chronic kidney disease with stage 1 through stage 4 chronic kidney disease, or unspecified chronic kidney disease; E11.22 Type 2 diabetes mellitus with diabetic chronic kidney disease; N18.3 Chronic kidney disease, stage 3 (moderate); I25.10 Atherosclerotic heart disease of native coronary artery without angina pectoris; E66.01 Morbid (severe) obesity due to excess calories; C67.9 Malignant neoplasm of bladder, unspecified; E86.0 Dehydration; I25.2 Old myocardial infarction; Z95.5 Presence of coronary angioplasty implant and graft; G47.30 Sleep apnea, unspecified; Z87.891 Personal history of nicotine dependence; Z68.32 Body mass index [BMI] 32.0-32.9, adult; E87.5 Hyperkalemia; F32.9 Major depressive disorder, single episode, unspecified; Z93.6 Other artificial openings of urinary tract status; Z66 Do not resuscitate; K59.03 Drug induced constipation; T40.605A Adverse effect of unspecified narcotics, initial encounter; R07.89 Other chest pain; D63.1 Anemia in chronic kidney disease
CPT/HCPCS: 36415; 71046; 76770; 80048; 80053; 80069; 82947; 83735; 83880; 84484; 85025; 93005; 93010; 94660; 96360; 96361; 96372; 97110; 97162; 97166; 97530; 99285-25; G0378; G0515; J1650; J3475; J7030

== ENCOUNTER 2018-10-21 08:22 | Inpatient (IN) | payer MEDICARE ==
[~2018-10-21] VITALS: Ht 177.8 cm; Wt 104.1 kg
[~2018-10-21 08:22] MED LIST changes: +Cymbalta20 MG PO; -DULO30 PO; -GENTEAL TEARS 015 ML BOTHEYES; +GENTEAL TEARS1 EACH BOTHEYES
[2018-10-21] MEDS ORDERED: ACET500 PO (09:05)
[2018-10-21] MEDS ORDERED: Zantac150 MG PO (09:09)
[2018-10-21] MEDS ORDERED: THERA1 EACH PO (09:09)
[2018-10-21 12:03] LABS: Creatine Kinase MB 1.3 ng/mL (0.0-3.6); Creatine Kinase MB Index 3.8 (0.0-4.0); Troponin I 0.077 ng/mL (0.000-0.040)
[2018-10-21] MEDS ORDERED: ONDA4 PO (12:10)
[2018-10-21 17:23] LABS: BASOPHILS ABSOLUTE AUTO 0.04 K/mm3 (0.00-0.23); BASOPHILS PERCENT AUTO 1 % (0-2); EOSINOPHILS ABSOLUTE AUTO 0.22 K/mm3 (0.00-0.68); EOSINOPHILS PERCENT AUTO 3 % (0-6); Hemoglobin 8.4 g/dL (13.5-17.5); IMMATURE GRAN ABSOLUTE AUTO 0.02 K/mm3 (0.00-0.10); IMMATURE GRAN PERCENT AUTO 0 % (0-1); LYMPHOCYTES ABSOLUTE AUTO 1.13 K/mm3 (0.84-5.20); LYMPHOCYTES PERCENT AUTO 17 % (21-46); MONOCYTES ABSOLUTE AUTO 0.71 K/mm3 (0.16-1.47); MONOCYTES PERCENT AUTO 11 % (4-13); Mean Corpuscular HGB 28.2 pg (26.0-34.0); Mean Corpuscular HGB Conc 31.1 g/dL (31.5-36.5); Mean Corpuscular Volume 91 fL (80-100); Mean Platelet Volume 9.3 fL (9.1-12.4); NEUTROPHILS ABSOLUTE AUTO 4.56 K/mm3 (1.96-9.15); NEUTROPHILS PERCENT AUTO 68 % (41-73); Platelet Count 329 K/mm3 (150-400); RDW Coefficient Variation 15.6 % (11.7-14.2); RDW Standard Deviation 51.1 fL (35.1-46.3); Red Blood Cell Count 2.98 M/mm3 (4.30-5.90); White Blood Cell Count 6.68 K/mm3 (4.00-11.30)
[2018-10-21 17:43] LABS: Creatine Kinase MB 1.4 ng/mL (0.0-3.6); Creatine Kinase MB Index 4.1 (0.0-4.0); Troponin I 0.09 ng/mL (0.000-0.040)
[2018-10-21 17:46] LABS: Albumin, Blood 2.6 g/dL (3.4-5.0); Albumin/Globulin Ratio 0.5 (0.8-1.8); Bilirubin, Total 0.5 mg/dL (0.1-1.0); Bun/Creatinine Ratio 13.1 (12.0-20.0); Calcium, Blood 9.2 mg/dL (8.5-10.1); Creatinine, Blood 1.6 mg/dL (0.60-1.20); Globulin, Blood 4.8 g/dL (2.2-4.0); Total Protein, Blood 7.4 g/dL (6.4-8.2)
--- NOTE | 2018-10-21 18:27 | NUR ---
PT ARRIED TO THE MEDICAL FLOOR FROM THE ER AROUND 1300 A/OX3, MILD CONFUSION/FORGETFULLNESS AT TIMES, THE PT IS UP WITH ASSIST STAND AND PIVOT PER THE FAMILY, THE PT WAS MEDICATED FOR PAIN SHORTLY AFTER ARRIVING TO THE FLOOR, PT WAS MEDICATED WITH MORPHINE Q5M FOR 3 DOSES WITH OUT RESULTS, A CALL WAS MADE TO MAICOL ALVARENGA AND NEW ORDERS WERE GIVEN FOR PAIN CONTROL, THE PT APPEARS TO BE BREATHING EASILY ON RA, THE PTS CHANGED THE UROSTOMY APPLIANCE, HOGSHEAD OPENER CONSULTED ON THE PT NEW ORDERS WERE GIVEN, THE PT IS NPO AT THIS TIME FOR ABD CT, FAMILY IS AT THE BEDSIDE, THE PT AND FAMILY WERE ORIENTED TO THE ROOM CALL SYSTEM AND LAYOUT
[2018-10-21 21:22] LABS: U Amphetamine Screen Not Detected; U Barbituate Screen Not Detected; U Benzodiazapine Screen Not Detected; U Buprenorphine Screen Not Detected; U Cannabinoids Screen Not Detected; U Cocaine Screen Not Detected; U Methadone Screen Not Detected; U Methamphetamine Screen Not Detected; U Opiates Screen DETECTED; U Oxycodone Screen DETECTED; U Phencyclidine Screen Not Detected; U Propoxyphene Screen Not Detected
--- NOTE | 2018-10-22 04:11 | NUR ---
SHIFT SUMMARY PT ALERT. ONLY ORIENTED TO SELF AND FAMILY. PLEASANT AND COOPERATIVE. REMAINED IN BED THROUGHOUT THE NIGHT. UROSTOMY IN PLACE. DRAINING LIGHT YELLOW URINE. PT HAS HX OF BLADDER CA. NO BM THIS SHIFT. PT SLEPT WELL THIS SHIFT. HOWEVER WHEN AWAKE AND ASKED PT DOES REPORT 6-8/10 CHEST PAIN. NOT ABLE TO BE MUCH MORE SPECIFIC. MEDICATED WITH SCHEDULED MS CONTIN. NO FURTHER PRN'S REQUIRED. HEPARIN DRIP RUNNING, DOSE ADJUSTED BY PHARMACY THIS EVENING. RATE INCREASED TO 15 U/KG/HR OR 27.9 ML/HR. 4650 UNIT BOLUS GIVEN ORDERED. TELEMETRY ON, READING SR W/ BBB AND PAC'S AT 64. CONTRAST STARTED FOR CT SCAN. PT DRANK ONE CUP OF CONTRAST THIS EVENING. WILL DRINK ONE AT 0500 AND ONE MORE AT 0600 AND THEN GO TO SCAN. PT TOLERATING WELL SO FAR. PT SLEEPING AT THIS TIME. VSS. OTHERWISE NO ACUTE CHANGES.
[2018-10-22 05:14] LABS: BASOPHILS ABSOLUTE AUTO 0.03 K/mm3 (0.00-0.23); BASOPHILS PERCENT AUTO 0 % (0-2); EOSINOPHILS ABSOLUTE AUTO 0.32 K/mm3 (0.00-0.68); EOSINOPHILS PERCENT AUTO 5 % (0-6); Hematocrit 24.3 % (37.0-53.0); Hemoglobin 7.4 g/dL (13.5-17.5); IMMATURE GRAN ABSOLUTE AUTO 0.03 K/mm3 (0.00-0.10); IMMATURE GRAN PERCENT AUTO 0 % (0-1); LYMPHOCYTES ABSOLUTE AUTO 1.22 K/mm3 (0.84-5.20); LYMPHOCYTES PERCENT AUTO 18 % (21-46); MONOCYTES ABSOLUTE AUTO 0.84 K/mm3 (0.16-1.47); MONOCYTES PERCENT AUTO 12 % (4-13); Mean Corpuscular HGB 27.8 pg (26.0-34.0); Mean Corpuscular HGB Conc 30.5 g/dL (31.5-36.5); Mean Corpuscular Volume 91 fL (80-100); Mean Platelet Volume 8.9 fL (9.1-12.4); NEUTROPHILS ABSOLUTE AUTO 4.34 K/mm3 (1.96-9.15); NEUTROPHILS PERCENT AUTO 64 % (41-73); Platelet Count 320 K/mm3 (150-400); RDW Coefficient Variation 15.9 % (11.7-14.2); RDW Standard Deviation 52.5 fL (35.1-46.3); Red Blood Cell Count 2.66 M/mm3 (4.30-5.90); White Blood Cell Count 6.78 K/mm3 (4.00-11.30)
[2018-10-22 05:39] LABS: Alanine Aminotransfer (ALT/SGP 11 U/L (12-78); Albumin, Blood 2.4 g/dL (3.4-5.0); Albumin/Globulin Ratio 0.5 (0.8-1.8); Alk Phos 69 U/L (50-136); Anion Gap 8 mmol/L (6-16); Aspartate Aminotrans (AST/SGOT 10 U/L (12-37); Bilirubin, Total 0.5 mg/dL (0.1-1.0); Blood Urea Nitrogen 20 mg/dL (8-24); Bun/Creatinine Ratio 12.5 (12.0-20.0); CO2, Blood 18 mmol/L (21-32); Calcium, Blood 8.8 mg/dL (8.5-10.1); Chloride, Blood 109 mmol/L (98-108); Cholesterol 82 mg/dL (50-200); Globulin, Blood 4.4 g/dL (2.2-4.0); Glomerular Filtration Rate 45 (60-); Glucose, Blood 114 mg/dL (70-99); Potassium, Blood 4.1 mmol/L (3.5-5.5); Sodium, Blood 135 mmol/L (136-145); Total Protein, Blood 6.8 g/dL (6.4-8.2); Triglycerides 80 mg/dL (30-160)
--- NOTE | 2018-10-22 06:04 | NUR ---
PT DRANK LAST TWO CUPS OF CONTRAST FOR SCAN THIS AM. FOLLOWING, PT UP TO [facility] AND HAD A VERY LARGE UNFORMED BROWN STOOL. HAD REPORTED THAT IT HAD BEEN 5 DAYS SINCE PT HAD HAD A BOWEL MOVEMENT.
--- NOTE | 2018-10-22 06:25 | NUR ---
FOLLOWING PT'S VERY LARGE BM PT REPORTS THAT HE "BARELY HAS ANY PAIN". REPORTING A 1-2/10 IN HIS CHEST.
--- NOTE | 2018-10-22 06:33 | NUR ---
PT TRASFERED STAND PIVOT TO [facility] AND WAS WHEELED DOWN TO IMAGING FOR CT OF ABD.
[2018-10-22 15:28] LABS: Hematocrit 23.6 % (37.0-53.0); Hemoglobin 7.2 g/dL (13.5-17.5); Mean Corpuscular HGB 27.7 pg (26.0-34.0); Mean Corpuscular HGB Conc 30.5 g/dL (31.5-36.5); Mean Corpuscular Volume 91 fL (80-100); Mean Platelet Volume 9.3 fL (9.1-12.4); Platelet Count 326 K/mm3 (150-400); RDW Coefficient Variation 15.9 % (11.7-14.2); RDW Standard Deviation 52.2 fL (35.1-46.3); White Blood Cell Count 5.86 K/mm3 (4.00-11.30)
--- NOTE | 2018-10-22 15:30 | NUR ---
Initial Visit: Palliative Care Consult for Symptom Management. Pt is resting in bed upon arrival. He is A&Ox3 and unable to answer current year appropriately. He reports 7/10 pain in his chest. Pt's nurse Alton comes in shortly after pain assessment and offers Pt his long acting pain medication. Pt chews and disolves pill in his mouth before swallowing. Pt reports doing this allows medication to work faster. Educated Pt on long acting pain medication and the importance of swallowing medication whole. Suggested to ask for breakthrough pain medication that will help manage his pain quicker to allow the long acting to stay in his system longer. Pt other smith reports his pain is managed with current regimen. He denies dyspnea and anxiety at this time. Engaged in therapeutic conversation regarding goals of care. Pt reports that he is of [employer] and lives at home with his , son, and daughter. He reports adequate support for his care needs at this time. Engaged in discussion about disease process of his cardiac issues and cancer issues. He reports that at some point he knows the cancer will take his life but has plans to contine with life plans for now. At times during the visit Pt makes nonsenical statements or conversation having nothing to do with topic of conversation. 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 Pt also waynes from his initial thought regarding his plans for fighting and states he discussed just receiving pain medications with the hospitalist and passing away pain free but was told this is not an option at this time. 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 Pt reports no other concerns at this time. There is some concerns regarding Pt's congnition and level of understanding. Plan: Will remain available
--- NOTE | 2018-10-22 18:23 | NUR ---
PT IS A/OX3, MILD CONFUSION FORGETFULLNESS AT TIMES, THE APPEARS TO BE BREATHING EASILY ON RA AT THIS TIME, THE PT WAS MEDICATED FOR PAIN T/O THE DAY, THE PT DENIED ANY N/V, THIS AM THE PT HAD 3 LARGE LOOSE BOEL MOVEMENTS, THE PT IS VISION IMPAIRED ON THE LEFT SIDE, HE NEEDS ASSISTANCE WITH THE MEAL SET UP, FAMILY AT THE BEDSIDE T/O THE DAY, CONSULT FOR ONCOLOGY WAS CALLED TO DR. DENTON, PER SECRATARY HE WILL RECIEVE THE CONSULT IN THE AM 10/23/18, CALL LIGHT IN REACH BED ALARM ON, THE PT IS UP WITH 1 PERSON ASSIST TO THE BSC
--- NOTE | 2018-10-23 04:21 | NUR ---
SHIFT SUMMARY PT'S PAIN WORSE THIS EVENING. REPORTING PAIN TO R UPPER ABD THAT IS CONSTANT WITH SHARPER INTERMITTENT PAINS. MEDICATED WITH SCHEDULED MS CONTIN AND IV MORPHINE. CPAP ON THROUGHOUT THE EVENING. CONTIOUS BIOX ON. O2 SATS GOOD THROUGHOUT THE NIGHT. PT REMAINS AT HIS BASELINE MENTATION WITH INTERMITTENT CONFUSION. UROSTOMY ON R ABD. DRAINING WELL. NO BM'S THIS EVENING. OTHERWISE NO ACUTE CHANGES. WILL CONTINUE TO MONITOR AND REPORT TO DAY RN.
[2018-10-23 05:14] LABS: BASOPHILS ABSOLUTE AUTO 0.03 K/mm3 (0.00-0.23); BASOPHILS PERCENT AUTO 1 % (0-2); EOSINOPHILS ABSOLUTE AUTO 0.32 K/mm3 (0.00-0.68); EOSINOPHILS PERCENT AUTO 5 % (0-6); Hematocrit 24.2 % (37.0-53.0); Hemoglobin 7.4 g/dL (13.5-17.5); IMMATURE GRAN ABSOLUTE AUTO 0.03 K/mm3 (0.00-0.10); IMMATURE GRAN PERCENT AUTO 1 % (0-1); LYMPHOCYTES ABSOLUTE AUTO 0.91 K/mm3 (0.84-5.20); LYMPHOCYTES PERCENT AUTO 15 % (21-46); MONOCYTES ABSOLUTE AUTO 0.74 K/mm3 (0.16-1.47); MONOCYTES PERCENT AUTO 12 % (4-13); Mean Corpuscular HGB 28.7 pg (26.0-34.0); Mean Corpuscular HGB Conc 30.6 g/dL (31.5-36.5); Mean Platelet Volume 9.3 fL (9.1-12.4); NEUTROPHILS ABSOLUTE AUTO 4.21 K/mm3 (1.96-9.15); NEUTROPHILS PERCENT AUTO 67 % (41-73); Platelet Count 323 K/mm3 (150-400); RDW Coefficient Variation 15.9 % (11.7-14.2); RDW Standard Deviation 54.8 fL (35.1-46.3); Red Blood Cell Count 2.58 M/mm3 (4.30-5.90); White Blood Cell Count 6.24 K/mm3 (4.00-11.30)
[2018-10-23 05:15] LABS: Mean Corpuscular Volume 94 fL (80-100)
[2018-10-23 05:35] LABS: Albumin, Blood 2.5 g/dL (3.4-5.0); Albumin/Globulin Ratio 0.6 (0.8-1.8); Bilirubin, Total 0.6 mg/dL (0.1-1.0); Bun/Creatinine Ratio 11.2 (12.0-20.0); Calcium, Blood 8.6 mg/dL (8.5-10.1); Creatinine, Blood 1.52 mg/dL (0.60-1.20); Globulin, Blood 4.3 g/dL (2.2-4.0); Total Protein, Blood 6.8 g/dL (6.4-8.2)
--- NOTE | 2018-10-23 13:48 | NUR ---
Spiritual care visit conducted. Patient was resting in bed but easily awoke when I spoke patient' name. Patient knew who I am but was certain that he was at home. Patient called loudly for his then he called out his kids names. I explained that he is at [facility] and the information slowly sank it. Patient worked it through a bit but held my hand the entire visit and seemed fearful. Patient stated that he was going to from the cancer that he has and so he talked at [facility] about this. I comforted him, and reminded him about who he is and how he was in good care. I provided companionship, a calming presence and prayer. Patient responded well and expressed gratitude for coming to see him. I also talked with Spouse Carrie and daughter Trista in the hallway prior to my visit and discussed hospice, risk verses benefit regarding cancer treatments and how they can help patient process the idea of hospice.
--- NOTE | 2018-10-23 16:01 | NUR ---
CALLED DR DENTON OFFICE AND CONFIRMED THE CONSULT REQUEST WAS RECIEVED. SPOKE TO LATONIA IN THE OFFICE AND SHE IS MESSAGING THE DOCTOR RIGHT NOW TO ENSURE IS AWARE OF IT. SHOULD COME TO SEE THE PT LATER TODAY.
--- NOTE | 2018-10-23 16:23 | NUR ---
RECIEVED A CALL BACK FROM LATONIA IN DR DENTON'S OFFICE, CORRIE IS OUT OF TOWN AND UNABLE TO SEE THE PT UNTIL FRIDAY. DR KELLEY IS IN TOWN AND WILL SEE THE PT HOWEVER CAN NOT DO SO UNTIL TOMORROW, 10/24/18.
--- NOTE | 2018-10-23 18:17 | NUR ---
SHIFT SUMMARY- PT SPOUSE TOLD STAFF THAT IT WAS TIME FOR HIS B 12 INJECTION, SPOKE TO GONZALES IN PHARMACY IT IS IN THE PT EMAR Q30D. ADMIN BRITTANI CHANGED AND PT RECIEVED IM B12 PER EMAR ORDER. SPOKE TO DR DENTON OFFICE, SEE PREVIOUS NOTE FOR DETAILS, PT TO BE SEEN BY DR TERRAZAS TOMORROW MORNING. PT HAS HAD PAIN T/O THE DAY, AND BEEN MEDICATED REGULARLY WITH PRN PAIN MEDICATION. PT SPOUSE IS AT THE BEDSIDE AND IS VERY INVOLVED WITH HIS CARE HERE, SHE FREQUENTLY ASKS QUESTIONS AND ASSISTS THE PT WITH MEALS. PER PT SPOUSE D/T PT IMPAIRED VISION HE NEEDS ASSISTANCE WITH FEEDING. PT IS ALERT AND ORIENTED BUT IS FORGETFUL. PT REFUSED MIRALAX THIS MORNING THEN C/O SEVERE ABD PAIN THIS EVENING RECIEVED 2 BROWN COW COCTAILS (PRUNE JUICE, APPLE JUICE AND BUTTER). STILL AWAITING THE RESULTS. PT HAS A UROSTOMY DRAINING INTO A CATHETER BAG, CLEAR YELLOW URINE. PT HAS HIS CALL LIGHT BUT HAS NOT BEEN USEING IT, SPOUSE HAS BEEN FINDING STAFF TO ASSIST HIM. PT ALONE IN HIS ROOM SPOUSE JUST LEFT FOR THE NIGHT.
[2018-10-24 05:30] LABS: BASOPHILS ABSOLUTE AUTO 0.02 K/mm3 (0.00-0.23); BASOPHILS PERCENT AUTO 0 % (0-2); EOSINOPHILS ABSOLUTE AUTO 0.45 K/mm3 (0.00-0.68); EOSINOPHILS PERCENT AUTO 7 % (0-6); Hematocrit 24.2 % (37.0-53.0); Hemoglobin 7.3 g/dL (13.5-17.5); IMMATURE GRAN ABSOLUTE AUTO 0.02 K/mm3 (0.00-0.10); IMMATURE GRAN PERCENT AUTO 0 % (0-1); LYMPHOCYTES ABSOLUTE AUTO 1.05 K/mm3 (0.84-5.20); LYMPHOCYTES PERCENT AUTO 17 % (21-46); MONOCYTES PERCENT AUTO 13 % (4-13); Mean Corpuscular HGB Conc 30.2 g/dL (31.5-36.5); Mean Corpuscular Volume 93 fL (80-100); Mean Platelet Volume 9.2 fL (9.1-12.4); NEUTROPHILS ABSOLUTE AUTO 3.88 K/mm3 (1.96-9.15); NEUTROPHILS PERCENT AUTO 62 % (41-73); Platelet Count 346 K/mm3 (150-400); RDW Coefficient Variation 15.9 % (11.7-14.2); RDW Standard Deviation 53.7 fL (35.1-46.3); Red Blood Cell Count 2.61 M/mm3 (4.30-5.90); White Blood Cell Count 6.22 K/mm3 (4.00-11.30)
[2018-10-24 05:56] LABS: Bun/Creatinine Ratio 10.3 (12.0-20.0); Calcium, Blood 8.8 mg/dL (8.5-10.1); Creatinine, Blood 1.46 mg/dL (0.60-1.20); Potassium, Blood 3.9 mmol/L (3.5-5.5)
--- NOTE | 2018-10-24 10:48 | NUR ---
Call back - Pt and spouse were present. Pt speaks directly and openly about his condition. He reports that he has cancer and his heart is too weak at this time to have treatments. Spouse asks how to talk with their children about it. After discussion and processing, the couple decides it's best for pt to talk with the boys and spouse to talk with the girls. Pt states he's already talked with a couple of the children. Pt seems to be realistic and is joking with the staff. Pt values his work. Conversation with spouse. She verbalizes that he may be looking at rehab/treatment solely for the purpose of being there for family. She reports she is ok with whatever he decides and then discusses an event that happened for years ago where he got better without chemo treatments from cancer. Brief conversation about hospice and the benefits of it discussed with the spouse. 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
--- NOTE | 2018-10-24 12:20 | NUR ---
Met with Alfonzo this morning in his room. He is alert and oriented at the time of my visit. He states that he remembers Dr. Norwood coming in to see him this morning and that Dr. Norwood told him "You're going to ." He admits that he has not felt well recently. He stated that once he felt like getting his gun to commit suicide, however he reports that he decided not to as that would be very difficult on his family. He is interested in hospice and asked appropriate questions. He states that he would like to go home with hospice and that he would like me to call his Hanh to discuss hospice with her as well. Explained hospice services to pt. His greatest concern is that his family will be ok after he passes away. Allowed him to express his concerns for them. Dr. Norwood's consult not reviewed prior to visit. He denies N/V, or SOB. He reports pain 7.5/10 to generalized abd which he describes as "An annoyance." Nursing notified and will medicate for pain. LM for aHnh as she did not answer her phone. Will talk with Hanh and answer questions. Staff state that Hanh visited this morning and plans to return to the hospital around dinnertime. PC will talk with Hanh and Alfonzo re: hospice option.
--- NOTE | 2018-10-24 18:02 | NUR ---
SHIFT SUMMARY PT MEDICATED FOR PAIN SCHEDULED AND WITH PRN MORPHINE. FAMILY AT BEDSIDE T/O THE DAY. CONTEMPLATING HOSPICE BUT WOULD LIKE A SECOND OPINION FROM THEIR REGULAR ONCOLOGIST. MILK OF MAG GIVEN PER REQUEST. NO OTHER ACUTE CHANGES THIS EVENING
--- NOTE | 2018-10-24 18:20 | NUR ---
Met with Kareem and his Hanh this evening in his room. Discussed prognosis and hospice an an option. Explained hospice and what services they provide. Hanh states she wants to keep Kareem home, however his care needs have increased and she feels that she wouldn't be able to do it without extra assistance. Currently Kareem receives 18 hours a week of care giving through the [facility]. Hanh is wondering if these hours could be increased. Hanh states she would like to think about hospice as an option. She would like input from their children and from Kareem's oncologist in [place] (Kareem is scheduled to have an appt with the [place] oncologist this coming Friday) before making a decision about hospice. LM for Aline, LAWRENCE nurse at [facility] with an update and also left a message for GABRIELE Alaniz RN who is working this weekend. Will plan to follow up with Kareem and Hanh in the next couple of days.
--- NOTE | 2018-10-25 00:04 | NUR ---
THIS NURSE CALLED FRIEND (NEXT OF KIN)--STEVEN TERRY AT [phone] AND LEFT VOICE MESSAGE ADVISING HER OF TRANSFER TO ICU. PT DECLINED TO HAVE DAUGHTER WHOM LIVES IN [place], [place] NOTIFIED.
--- NOTE | 2018-10-25 04:57 | NUR ---
73 Y/O OBESE MALE RESTED COMFORTABLY IN BED ALL EVENING. PT DENIES PAIN OR NAUSEA. PTS BED IN LOW POSITION WITH CALL LIGHT AT SIDE.
--- NOTE | 2018-10-25 10:33 | NUR ---
CHEST PAIN PT COMPLAINED OF CHEST PAIN AT APPROXIMATELY 0920, HE REPORTED HE HAD BEEN HAVING CHEST PAIN SINCE BREAKFAST. PT WAS GIVEN ROUTINE AM MEDICATIONS INCLUDING IMDUR AND MS CONTIN. PT WAS REASSESSED AND DECLINED CHEST PAIN BY APPROXIMATELY 0945. DR. 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 WILL CONTINUE TO MONITOR.
--- NOTE | 2018-10-25 10:42 | NUR ---
SHIFT ASSESSMENT ASSESSMENT WAS COMPLETED BY THIS RN AND RAUL OBREGON STUDENT NURSE. DOCUMENTATION WAS REVIEWED AND THIS RN AGREES WITH DOCUMENTATION BY RAUL OBREGON STUDENT NURSE.
--- NOTE | 2018-10-25 18:34 | NUR ---
Shift Summary pain has been managed by ms contin and morphine sulphate. pt c/o flank pain. pt has been mostly oriented but confused and forgetful at times. Pt required assistance with repositioning. Family and friends have been in to visit throughout the day. Patient has been compliant with treatment. Blood pressure been brought under control with meds, last bp was 116/65 @ 1519. will monitor until report to oncoming rn.
--- NOTE | 2018-10-25 19:23 | NUR ---
SHIFT SUMMARY PAIN MANAGED WITH PO AND IV PAIN MEDICATION. PT SOMEWHAT CONFUSED/FORGETFUL. PT REQUIRED ASSISTANCE REPOSITIONING. VSS. REPORT GIVEN TO HERMAN PRADO.
[2018-10-26] MEDS ORDERED: BISA10S PR (11:27)
[2018-10-26] MEDS ORDERED: FURO20 PO (11:28)
[2018-10-26] MEDS ORDERED: HYDR10 PO (11:28)
[2018-10-26] MEDS ORDERED: DOCU100 PO (11:28)
[2018-10-26] MEDS ORDERED: Fentanyl TOP (11:29)
[2018-10-26] MEDS ORDERED: Micro-K10 MEQ PO (11:29)
[2018-10-26] MEDS ORDERED: Liquitears15 ML BOTHEYES (11:29)
[2018-10-26] MEDS ORDERED: LIDOCARE1 EACH TOP (11:31)
--- NOTE | 2018-10-26 13:46 | NUR ---
Spiritual care visit conducted. Patient is lying bed and asleepwhen I entered the patient's room. Patient said that he was not going to this week.This opened a discussion about and dying. Patient said that he is ready to "go," but Chary (patient's spouse) is not ready to let me go. Patient asked what I thought dying was like, I told patient that I have been hospice social worker and hospital linen room supervisor for many years and that I have seen a lot of beautiful deaths and others have seemed difficult. Patient said that his would be good and that he would just slip into God's arms. A good for the patient would be one without pain and with his family surrounding him. I listened empathically, provided anticipatory grief support, pastoral housing counselor and prayer. Patient responded well and showed signs of reduced stress.
--- NOTE | 2018-10-26 17:54 | NUR ---
SHIFT SUMMARY. PT'S HAS DECIDED TO TRANSITION THE PT TO HOSPICE UPON DISCHARGE AND IS FEARFUL TO TAKE PT HOME BEFORE THE DAY THAT THE PT CAN BE ADMITTED TO HOSPICE. DR. MILIAN HELD D/C TILL TOMORROW. SS IN WITH PT, AND DAUGHTER SETTING UP HOSPICE SERVICES WITH PT. HARD SCRIPTS GIVE TO , NEW RX FAXED TO [facility] [place]. PT CONTINUES TO HAVE PAIN, MOSTLY TO R SHOULDER AND NECK TODAY, MANAGED WELL WITH CURRENT ORDERS. NO N/V. NO SOB. BOWEL PROTOCOL INITIATED TODAY LAST BM WAS 10/22/18. FAMILY IN VISITING THROUGHOUT THE SHIFT.
--- NOTE | 2018-10-26 18:25 | NUR ---
Pt visit this evening. Received call from Pt's nurse Cresencio reporting family had questions regarding hospice. Pt is resting in bed upon arrival. Pt's son and daughter present during visit. Answered Pt and family questions regarding hospice. Pt's son reports the plan is for Pt to go home on hospice tomorrow and to keep his pain managed. Eventually they would like for Pt's heart to recover enough to continue with treatment. Educated Pt and family that Pt can choose to revoke hospice at any time to pursue curative treatment. Pt and family report no other concerns at this time. Left palliative care contact information with family and instructed them to call for any questions or concerns.
--- NOTE | 2018-10-27 04:28 | NUR ---
SHIFT SUMMARY: PT IS ALERT AND ORIENTED WITH INTERMITTENT CONFUSION. PT IS CALM, PLEASANT, AND COOPERATIVE WITH CARE. FAMILY IN THE ROOM OVERNIGHT. PT REPORTS R. SHOULDER PAIN, MEDICATING PER EMAR. UROSTOMY DRAINING YELLOW URINE. PT SLEPT MUCH OF THE NIGHT. PT DENIES NAUSEA, VOMITING, AND SOB. POSSIBLE DC TODAY. NO ACUTE CHANGES OR COMPLICATIONS THIS SHIFT. BED IN LOW POSITION, CALL LIGHT WITHIN REACH. WILL REPORT TO DAY NURSE.
--- NOTE | 2018-10-27 10:00 | NUR ---
PAIN- PT CNTINUOUSLY REPORTS 8-9/10 PAIN TO RIGHT CHEST. PT HAS 75MCG FENTANYL PATCH IN PLACE WELL LIDOCAINE PATCHES. PT GIVEN MORPHINE 4MG WELL MS CONTIN AND OXYCODONE PRIOR TO SHIFT CHANGE. PT REPORTS IT DOES NOT HELP. SPOKE WITH DR MILIAN WHO ORDERED FENTANYL 25MCG IV X1 AND WILL COME TALK WITH PT.
--- NOTE | 2018-10-27 11:35 | NUR ---
Spiritual care visit conducted. Patient was sleeping when I entered the room and patient's spouse Hanh was bedside. Hanh stated that patient would be going home on hospice today and then she asked me what she needed to know about this process. I assured her that the [facility] hospice team is amazing and that they would walk her through the process. I advised her to communicate with the hospice nurse about the pain management concerns and about the language barriers tht make comprehension a challenge. I also told her about the chaplains and gave her their names. Patient then woke up. I spent some time holding patient's hand and reassuring him. I provided emotional support, companionship and prayer. Patient responded well and then fell back to sleep.
[2018-10-27] MEDS ORDERED: FENTANYL PATCH TOP (12:45)
--- NOTE | 2018-10-27 12:53 | NUR ---
DISCHARGE INSTRUCTIONS REVIEWED WITH PT AND SPOUSE. IV DC'D INTACT. PAIN MEDS GIVEN PRIOR TO DISCHARGE PER SPOUSE REQUEST FOR 01/27 PAIN. PT AWAITING GURNEY TRANSPORT HOME WITH HOSPICE. HOSPICE TO MEET AT HOUSE TO ADMIT.
--- NOTE | 2018-10-27 13:15 | NUR ---
PT D/C'S VIA [facility] AT 1315, SPOUSE WITH PT.
== END 2018-10-27 13:16 | disposition hospice, home (50) | DRG 948 ==
LOC: ER 08:22 → MEDS 08:23 → ENPENDDIS 10-26 10:51 → EDPENDDIS 10-26 10:51 → MEDS 10-27 13:16
PROVIDERS: ADMIT Family Medicine
DX: G89.3 Neoplasm related pain (acute) (chronic) (principal); N17.9 Acute kidney failure, unspecified; C78.00 Secondary malignant neoplasm of unspecified lung; C78.7 Secondary malignant neoplasm of liver and intrahepatic bile duct; I25.10 Atherosclerotic heart disease of native coronary artery without angina pectoris; G47.33 Obstructive sleep apnea (adult) (pediatric); G25.81 Restless legs syndrome; N18.3 Chronic kidney disease, stage 3 (moderate); E78.00 Pure hypercholesterolemia, unspecified; F32.9 Major depressive disorder, single episode, unspecified; I12.9 Hypertensive chronic kidney disease with stage 1 through stage 4 chronic kidney disease, or unspecified chronic kidney disease; Z87.891 Personal history of nicotine dependence; Z79.82 Long term (current) use of aspirin; Z51.5 Encounter for palliative care; E66.01 Morbid (severe) obesity due to excess calories; Z68.34 Body mass index [BMI] 34.0-34.9, adult; I25.2 Old myocardial infarction; Z66 Do not resuscitate; C67.9 Malignant neoplasm of bladder, unspecified; I95.1 Orthostatic hypotension; K59.03 Drug induced constipation; T40.605A Adverse effect of unspecified narcotics, initial encounter; Y92.9 Unspecified place or not applicable; Z95.5 Presence of coronary angioplasty implant and graft; I25.5 Ischemic cardiomyopathy; Z74.01 Bed confinement status; I71.2 Thoracic aortic aneurysm, without rupture; I27.20 Pulmonary hypertension, unspecified; I08.1 Rheumatic disorders of both mitral and tricuspid valves; K21.9 Gastro-esophageal reflux disease without esophagitis
CPT/HCPCS: 36415; 71046; 71250; 74176; 78582; 80048; 80053; 82465; 82550; 82553; 82947; 83880; 84478; 84484; 85025; 85027; 85379; 85730; 86850; 86900; 86901; 93005; 93010; 93308; 93321; 94762; 96361; 96365; 96372; 96375; 96376; 99285-25; A9540; A9558; G0378; J1644; J1650; J2270; J3010; J3420; J7030